=== PATIENT | male | born 1990 | race Caucasian/White ===

== ENCOUNTER 2022-09-12 15:36 | Observation (INO) | payer OTHER, MEDICAID, SELFPAY ==
[2022-09-12] VITALS (8 sets, daily range): BP systolic 135–168; BP diastolic 90–102; PULSE 79–86; RESP 16–18; TEMP 35.7–37.3; O2SAT 94–98; BMI 24.8; BMI 27.3
--- NOTE | 2022-09-12 16:15 | CRLHL7_ITS ---
For Patients: As a result of the Century Cures Act, medical imaging exams and procedure reports are released immediately into your electronic medical record. You may view this report before your referring provider. If you have questions, please contact your health care provider. INDICATION: Vomiting and diarrhea. Abdominal pain and weight loss. TECHNIQUE: CT abdomen and pelvis acquired with 90 cc Isovue 370 IV contrast. COMPARISON: 05/15/2021. FINDINGS: Lower chest: Unremarkable. Liver: Unremarkable. Normal in size and attenuation. No suspicious masses. Gallbladder and bile ducts: Unremarkable. No stones or inflammation. No biliary dilatation. Pancreas: Unremarkable. No mass or inflammation. Spleen: Unremarkable. Normal in size. No masses. Adrenal glands: Unremarkable. No nodules. Kidneys: Unremarkable. No suspicious masses, stones, or hydronephrosis. GI tract: Relatively severe diffuse fluid and gaseous distention of the colon. Less severe fluid-filled distension dural most of the small bowel as well. Appendix is not visualized. Vasculature: Abdominal aorta is normal in caliber. Mesenteric arteries are patent. Lymph nodes: No lymphadenopathy. Peritoneum/Abdominal Wall: Unremarkable. No sign of mass or infiltration. No free air or significant free fluid. Pelvis: Unremarkable. Bones: Unremarkable for age. IMPRESSION: 1. Possible toxic megacolon versus generalized ileus. 2. No other acute or significant findings. Please note that all CT scans at this facility use dose modulation, iterative reconstruction, and/or weight-based dosing when appropriate to reduce radiation dose to as low as reasonably achievable. Dictated by Arsenio Clark MD @ 09/12/2022 6:24:52 PM (Electronically Signed)
--- NOTE | 2022-09-12 16:30 | ED_ITS ---
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 I saw him in 2020 with similar symptoms at which time he was diagnosed with a sigmoid volvulus. He was transferred to [facility] at the time, and Mom reports he had surgery and had a partial colectomy. For the past couple of days, she reports that he has had lots of vomiting and diarrhea. He has seemed uncomfortable, has been diaphoretic. He did want to eat today, so had some food. He has not had a fever that she has noticed. Has not had bloody stools. His stomach has seemed ?gurgly, and at times has seemed firm. He is not able to communicate at all with her verbally. Related Data Home Medications Medication Instructions Recorded Confirmed dextroamphetamine-amphetamine 10 10 mg PO DAILY 09/12/22 09/12/22 mg tablet (Adderall) dextroamphetamine-amphetamine 15 15 mg PO DAILY 09/12/22 09/12/22 mg tablet gabapentin 100 mg capsule 100 mg PO TID 09/12/22 09/12/22 gabapentin 400 mg capsule 400 mg PO HS 09/12/22 09/12/22 quetiapine 100 mg tablet 100 mg PO HS 09/12/22 09/12/22 quetiapine 25 mg tablet 50 mg PO BID 09/12/22 09/12/22 sertraline 100 mg tablet 200 mg PO DAILY 09/12/22 09/12/22 trazodone 100 mg tablet 100 mg PO HS 09/12/22 09/12/22 Allergies Allergy/AdvReac Type Severity Reaction Status Date / Time latex Allergy Intermediate Verified 09/12/22 15:58 Sulfa (Sulfonamide Allergy Intermediate Verified 09/12/22 15:58 Antibiotics) Review of Systems Status of ROS: Reports: unobtainable due to medical condition [facility] Medical History (Updated 09/12/22 @ 18:54 by Didi Katz MD) Angelman's syndrome Anxiety Constipation History of seizure Sleep disturbance Social History Smoking Status: Never smoker Do you use any of these nicotine containing products: None Second hand tobacco smoke exposure: No How often do you have a drink containing alcohol: never How often do you have six or more drinks on one occasion: Never AUDIT-C Alcohol total score: 0 Non-prescribed substance use: denies use Exam Narrative: Exam Narrative: Vital signs as noted above. In general, an alert, somewhat diaphoretic male. Head: Atraumatic. Eyes: Pupils are equal reactive. Extraocular movements are full. Conjunctivae are normal. ENT: Mucous membranes are moist. Neck: Supple without lymphadenopathy. Heart: Regular rate and rhythm. No murmur or rub. Lungs: Clear bilaterally. No increased work of breathing, crackles or wheezes. Abdomen: Abdomen is slightly distended, firm to palpation although it is difficult to know whether he is voluntarily guarding or not. Difficult to know whether he is tender because of his underlying delay. Bowel sounds are quiet. Extremities: Well perfused. No edema. No calf tenderness. Pulses intact. Neurologic: Patient is alert and oriented to person and place. Speech is fluent. Face is symmetric. Moves all extremities equally. Affect: Consistent with developmental delay. Skin: Diaphoretic. Well perfused. Const: Vital Signs, click to edit/add: Vital Signs - 24 hr 09/12/22 15:52 09/12/22 16:36 09/12/22 18:30 Temperature 96.3 F L 98.0 F 98.0 F Pulse Rate [Pulse Oximeter] 79 Respiratory Rate 18 Blood Pressure [Ri ght Upper Arm] 148/102 H Pulse Oximetry 98 Oxygen Delivery Me thod Room Air 09/12/22 18:36 Temperature 98.0 F Pulse Rate [Pulse Oximeter] 84 Respiratory Rate 18 Blood Pressure [Ri ght Upper Arm] 135/90 H Pulse Oximetry 98 Oxygen Delivery Me thod Room Air Documenting provider has reviewed patient's vital signs: yes Course Course Hospital Course: Given his underlying nonverbal state and history, I recommended that we go straight to CT scan. An IV will be placed, I have ordered some Toradol and Zofran, IV fluids. Reevaluation(s) Reevaluation #1: Patient is improved after Zofran, no further vomiting. He seems more comfortable, less diaphoresis. He has been cooperative here as long as his mom is present he is easily soothed. He was able to get his CT scan, which by my review showed significant dilation of the colon diffusely, some air-filled loops of small bowel although these do not appear significantly dilated. Final Radiology read is as follows: IMPRESSION: 1. Possible toxic megacolon versus generalized ileus. 2. No other acute or significant findings. Labs are relatively unimpressive, his CRP is mildly elevated at 3.7, white count is normal with the minimal left shift of 73% neutrophils. His hemoglobin is 15, platelets are normal. 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 He is not toxic in appearance, not febrile, vital signs are largely normal. I did order some IV potassium, at this point I am not sure that oral potassium is a good idea for him particularly given his nonverbal status. Remainder his metabolic panel is unremarkable, LFTs are normal. Magnesium is 1.9. LFTs are notable for an AST of 52 but are otherwise normal. Lipase is 53. COVID is negative. I have discussed his case with Dr. Zimmerman who agrees with admission here for NPO, fluids and close observation with Q 12 hour abdominal films. At this time, she does not feel that the NG tube is needed, and we are in agreement that he would not likely tolerate it well. Dr. Delgado has accepted the patient for admission to the hospitalist service. Vital Signs Vital signs: Initial Vital Signs Temperature 96.3 F L 09/12/22 15:52 Temperature Source Temporal Artery Scan 09/12/22 15:52 Pulse Rate 79 09/12/22 15:52 Respiratory Rate 18 09/12/22 15:52 Blood Pressure 148/102 H 09/12/22 15:52 Blood Pressure Mean 117 09/12/22 15:52 Blood Pressure Position Supine 09/12/22 15:52 Pulse Oximetry 98 09/12/22 15:52 Oxygen Delivery Method 09/12/22 15:52 Vital Signs Temperature 96.3 F L 09/12/22 15:52 Pulse Rate 79 09/12/22 15:52 Respiratory Rate 18 09/12/22 15:52 Blood Pressure 148/102 H 09/12/22 15:52 Pulse Oximetry 98 09/12/22 15:52 Oxygen Delivery Method 09/12/22 15:52 Temperature 98.0 F 09/12/22 20:14 Pulse Rate 84 09/12/22 20:14 Respiratory Rate 18 09/12/22 20:14 Blood Pressure 135/90 H 09/12/22 20:14 Pulse Oximetry 98 09/12/22 18:36 Oxygen Delivery Method 09/12/22 18:36 Medical Decision Making Lab Data Labs: Lab Results 09/12/22 09/12/22 09/12/22 Range/Units 16:30 16:30 16:30 WBC 6.16 (4.50-11.00) K/uL RBC 4.80 (4.30-5.90) m/uL Hgb 15.0 (13.5-17.5) gm/dL Hct 43.2 (37.0-53.0) % MCV 90 (80-100) fL MCH 31 (26-34) pg MCHC 35 (32-36) gm/dL RDW Coeff of Pamela 12.5 (11.5-15.5) % Plt Count 186 (140-440) K/uL Neut % (Auto) 73.0 H (42.0-72.0) % Lymph % (Auto) 15.3 L (20-44) % Schleicher % (Auto) 10.4 (0.0-11.0) % Eos % (Auto) 0.5 (0.0-7.0) % Baso % (Auto) 0.2 (0.0-3.0) % Neut # (Auto) 4.50 (1.7-7.0) K/uL Lymph # (Auto) 0.90 (0.90-2.90) K/uL Schleicher # (Auto) 0.60 (0.00-0.90) K/UL Eos # (Auto) 0.03 (0.00-0.50) K/uL Baso # (Auto) 0.01 (0.00-0.30) K/uL Sodium 139 (135-149) mmol/L Potassium 2.9 L* (3.6-5.1) mmol/L Chloride 104 (96-114) mmol/L Carbon Dioxide 22 (20-32) mmol/L BUN 14 (5-24) mg/dL Creatinine 0.7 (0.5-1.5) mg/dL Estimated Creat Clear 164.75 Estimated GFR 125 ml/min Glucose 108 (60-115) mg/dL Lactate 0.9 (0.5-1.9) mmol/L Calcium 9.0 (8.4-10.6) mg/dL Magnesium (1.5-2.6) mg/dL Total Bilirubin 0.5 (0.1-1.5) mg/dL Direct Bilirubin 0.2 (0.0-0.5) mg/dL AST 52 H (12-35) U/L ALT 30 (4-50) U/L Alkaline Phosphatase 53 (40-150) U/L C-Reactive Protein 3.7 H (0.5-1.0) mg/dL Total Protein 7.9 (6.0-8.3) g/dL Albumin 4.6 (3.3-5.0) g/dL Lipase 53 (23-300) U/L SARS-CoV-2 (PCR) (Negative) 09/12/22 09/12/22 Range/Units 16:30 16:30 WBC (4.50-11.00) K/uL RBC (4.30-5.90) m/uL Hgb (13.5-17.5) gm/dL Hct (37.0-53.0) % MCV (80-100) fL MCH (26-34) pg MCHC (32-36) gm/dL RDW Coeff of Pamela (11.5-15.5) % Plt Count (140-440) K/uL Neut % (Auto) (42.0-72.0) % Lymph % (Auto) (20-44) % Schleicher % (Auto) (0.0-11.0) % Eos % (Auto) (0.0-7.0) % Baso % (Auto) (0.0-3.0) % Neut # (Auto) (1.7-7.0) K/uL Lymph # (Auto) (0.90-2.90) K/uL Schleicher # (Auto) (0.00-0.90) K/UL Eos # (Auto) (0.00-0.50) K/uL Baso # (Auto) (0.00-0.30) K/uL Sodium (135-149) mmol/L Potassium (3.6-5.1) mmol/L Chloride (96-114) mmol/L Carbon Dioxide (20-32) mmol/L BUN (5-24) mg/dL Creatinine (0.5-1.5) mg/dL Estimated Creat Clear Estimated GFR ml/min Glucose (60-115) mg/dL Lactate (0.5-1.9) mmol/L Calcium (8.4-10.6) mg/dL Magnesium 1.9 (1.5-2.6) mg/dL Total Bilirubin (0.1-1.5) mg/dL Direct Bilirubin (0.0-0.5) mg/dL AST (12-35) U/L ALT (4-50) U/L Alkaline Phosphatase (40-150) U/L C-Reactive Protein (0.5-1.0) mg/dL Total Protein (6.0-8.3) g/dL Albumin (3.3-5.0) g/dL Lipase (23-300) U/L SARS-CoV-2 (PCR) Negative SARS-CoV-2 (Negative) Discharge Plan Discharge Clinical Impression: [place] syndrome, Angelman syndrome, Hypokalemia Patient Disposition: Admitted As Inpatient Condition: Improved
[2022-09-12] MEDS: ONDANSETRON 2 MG/ML inj 4 MG IVP (16:35)
[2022-09-12] MEDS: KETOROLAC 15 MG/ML inj IVP (16:36)
[2022-09-12 16:37] LABS: Lactate* 0.9 mmol/L (0.5-1.9)
[2022-09-12] MEDS: 0.9 % SODIUM CHLORIDE 1000 ml 1,000 ML IV (16:39)
[2022-09-12 16:44] LABS: Basophils Absolute Auto 0.01 K/uL (0.00-0.30); Basophils Percent Auto 0.2 % (0.0-3.0); Eosinophils Absolute Auto 0.03 K/uL (0.00-0.50); Eosinophils Percent Auto 0.5 % (0.0-7.0); Hematocrit 43.2 % (37.0-53.0); Immature Granulocytes Abs Auto 0.04 K/uL (0.00-0.30); Immature Granulocytes Pct Auto 0.6 %; Lymphocytes Percent Auto 15.3 % (20-44); Mean Corpuscular HGB Conc 35 gm/dL (32-36); Mean Corpuscular Hemoglobin 31 pg (26-34); Mean Corpuscular Volume 90 fL (80-100); Monocytes Percent Auto 10.4 % (0.0-11.0); Platelet Count* 186 K/uL (140-440); RDW Coefficient of Variation % 12.5 % (11.5-15.5); White Blood Count* 6.16 K/uL (4.50-11.00)
[2022-09-12 16:58] LABS: Albumin* 4.6 g/dL (3.3-5.0); Chloride* 104 mmol/L (96-114)
[2022-09-12 16:59] LABS: Sodium* 139 mmol/L (135-149)
[2022-09-12 17:00] LABS: Creatinine* 0.7 mg/dL (0.5-1.5); Est. Creatinine Clearance* 164.75; Estimated Glomerular Filt Rate 125 ml/min
[2022-09-12 17:01] LABS: Alanine Aminotransferase* 30 U/L (4-50); Alkaline Phosphatase* 53 U/L (40-150); Bilirubin Direct* 0.2 mg/dL (0.0-0.5); Bilirubin Total* 0.5 mg/dL (0.1-1.5); Blood Urea Nitrogen* 14 mg/dL (5-24); Carbon Dioxide* 22 mmol/L (20-32); Glucose* 108 mg/dL (60-115); Lipase* 53 U/L (23-300); Total Protein* 7.9 g/dL (6.0-8.3)
[2022-09-12 17:02] LABS: Aspartate Amino Transferase* 52 U/L (12-35)
[2022-09-12 17:03] LABS: Slide Review Reflex No
[2022-09-12 17:04] LABS: C Reactive Protein* 3.7 mg/dL (0.5-1.0); Potassium* 2.9 mmol/L (3.6-5.1)
[2022-09-12 17:45] LABS: SARS PCR* Negative SARS-CoV-2 (Negative)
[2022-09-12 18:00] LABS: Magnesium* 1.9 mg/dL (1.5-2.6)
[2022-09-12] MEDS: POTASSIUM CHLORIDE 10 MEQ/100 ML PIGGYBACK 100 MEQ IVPB (19:25)
--- NOTE | 2022-09-12 21:07 | P.IMHP_ITS ---
Hospitalist- H&P: HPI History of Present Illness Time Seen by Provider: 18:55 Date Seen: 09/12/22 Chief complaint: Vomiting, diarrhea, sweating Narrative: Adithya Muñoz is a 32 year old nonverbal male with Angelman's syndrome who was brought to the ER for vomiting and diarrhea. His mother gives me history. Over the last few weeks to months, he has been having softer stool, often liquid in the morning. His parents have been working with Dr. Davidson to adjust miralax dosing to help with constipation, but the liquid stools sometimes are a challenge. 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 When he returned home that night, his mother noted that he seemed different and he did not want supper. Overnight he had a large amount of diarrhea and vomited once. His mother has not given him any MiraLax since Monday morning. On Monday he had frequent emesis and diarrhea. Yesterday he had no appetite and continued to have dry heaves. He was also lying around a lot and did not seem to have much energy. He wanted his mom by his side most of the day as well. This morning he woke up and wanted to eat. His mother let him try some applesauce and cream of wheat for breakfast which went okay so she gave him soup for lunch along with some Gatorade and ananth gold. All day long today he has been clammy and sweaty which is unusual for him. He has not had any recent illnesses and has not had any recent fevers or chills, coughs or colds. About 2 years ago he had a volvulus which he had 2 ft of colon removed. The surgeon who did his surgery told his mother that appeared that he has slow movement through his bowels. Adithya has had chronic constipation all his life. His mother notes that he does not like to go to the bathroom, especially when he is not at home, but even at home it is difficult to get him to sit on the toilet. He does go in the morning, but holds any stool or urine until he gets home at night and then he ends up having to go several times even sometimes in the middle of the night. 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 Smoking Status: Never smoker Do you use any of these nicotine containing products: None Second hand tobacco smoke exposure: No How often do you have a drink containing alcohol: never How often do you have six or more drinks on one occasion: Never AUDIT-C Alcohol total score: 0 Non-prescribed substance use: denies use Caffeine: No Meds Home Medications and Allergies Home Medications Medication Instructions Recorded Confirmed Type dextroamphetamine-amphetamine 10 10 mg PO DAILY 09/12/22 09/12/22 History mg tablet (Adderall) dextroamphetamine-amphetamine 15 15 mg PO DAILY 09/12/22 09/12/22 History mg tablet gabapentin 100 mg capsule 100 mg PO TID 09/12/22 09/12/22 History gabapentin 400 mg capsule 400 mg PO HS 09/12/22 09/12/22 History polyethylene glycol 3350 17 17 g PO DAILY 09/12/22 09/12/22 History gram/dose oral powder (Miralax) quetiapine 100 mg tablet 100 mg PO HS 09/12/22 09/12/22 History quetiapine 25 mg tablet 50 mg PO BID 09/12/22 09/12/22 History sertraline 100 mg tablet 200 mg PO DAILY 09/12/22 09/12/22 History trazodone 100 mg tablet 100 mg PO HS 09/12/22 09/12/22 History Allergies Allergy/AdvReac Type Severity Reaction Status Date / Time latex Allergy Intermediate Verified 09/12/22 15:58 Sulfa (Sulfonamide Allergy Intermediate Verified 09/12/22 15:58 Antibiotics) Exam Narrative: Exam Narrative: General: No acute distress. Sitting up in bed, nonverbal, does occasionally make non-word sounds. Awake, alert. He points the TV and to his mother he grabs his mother's hands and wants her to scratch his back or his head. He has a toy tractor which helps provide some sensory stimulus as well. He also grabbed my arms and brought them to his head for head scratches. Exam was difficult because he does not follow commands and occasionally resists certain portions of the exam. HEENT: Normocephalic atraumatic, pupils equally round. He refused to open his mouth for examination. Cardiovascular: Regular rate and rhythm. No murmurs, gallops, or rubs. Chest: No increased work of breathing. Clear to auscultation bilaterally. No crackles or wheezes. Abdomen: Bowel sounds present. Distended. Rigid, although he was constantly in his head up and trying to set up and may be consciously guarding during the examination. He did not appear to be in pain or have tenderness with palpation. He is wearing a depends. Due to his inability to cooperate with the examinati on, I was unable to do a rectal exam. Extremities: No edema, no cyanosis or clubbing. Skin: No jaundice, no pallor, no rashes. Const: Vital Signs, click to edit/add: Vital Signs - 24 hr 09/12/22 15:52 09/12/22 16:36 09/12/22 18:30 Temperature 96.3 F L 98.0 F 98.0 F Pulse Rate [Pulse Oximeter] 79 Respiratory Rate 18 Blood Pressure [Ri ght Upper Arm] 148/102 H Pulse Oximetry 98 Oxygen Delivery Me thod Room Air 09/12/22 18:36 09/12/22 20:14 Temperature 98.0 F 98.0 F Pulse Rate [Pulse Oximeter] 84 84 Respiratory Rate 18 18 Blood Pressure [Ri ght Upper Arm] 135/90 H 135/90 H Pulse Oximetry 98 Oxygen Delivery Me thod Room Air Hospitalist - H&P: Result Labs Labs: Short CBC 09/12/22 Range/Units 16:30 WBC 6.16 (4.50-11.00) K/uL Hgb 15.0 (13.5-17.5) gm/dL Hct 43.2 (37.0-53.0) % Plt Count 186 (140-440) K/uL BMP 09/12/22 16:30 Sodium 139 Potassium 2.9 L* Chloride 104 Carbon Dioxide 22 BUN 14 Creatinine 0.7 Glucose 108 Calcium 9.0 Liver Function 09/12/22 Range/Units 16:30 Total Bilirubin 0.5 (0.1-1.5) mg/dL Direct Bilirubin 0.2 (0.0-0.5) mg/dL AST 52 H (12-35) U/L ALT 30 (4-50) U/L Alkaline Phosphatase 53 (40-150) U/L Albumin 4.6 (3.3-5.0) g/dL Ordering Physician: Didi Katz M.D. Date of Service: 09/12/22 Procedure(s): CT abdomen pelvis w con Accession Number(s): [id number] cc: Didi Katz M.D.; Krystal Davidson M.D.~ For Patients: As a result of the Cures Act, medical imaging exams and procedure reports are released immediately into your electronic medical record. You may view this report before your referring provider. If you have questions, please contact your health care provider. INDICATION: Vomiting and diarrhea. Abdominal pain and weight loss. TECHNIQUE: CT abdomen and pelvis acquired with 90 cc Isovue 370 IV contrast. COMPARISON: 05/15/2021. FINDINGS: Lower chest: Unremarkable. Liver: Unremarkable. Normal in size and attenuation. No suspicious masses. Gallbladder and bile ducts: Unremarkable. No stones or inflammation. No biliary dilatation. Pancreas: Unremarkable. No mass or inflammation. Spleen: Unremarkable. Normal in size. No masses. Adrenal glands: Unremarkable. No nodules. Kidneys: Unremarkable. No suspicious masses, stones, or hydronephrosis. GI tract: Relatively severe diffuse fluid and gaseous distention of the colon. Less severe fluid-filled distension dural most of the small bowel as well. Appendix is not visualized. Vasculature: Abdominal aorta is normal in caliber. Mesenteric arteries are patent. Lymph nodes: No lymphadenopathy. Peritoneum/Abdominal Wall: Unremarkable. No sign of mass or infiltration. No free air or significant free fluid. Pelvis: Unremarkable. Bones: Unremarkable for age. IMPRESSION: 1. Possible toxic megacolon versus generalized ileus. 2. No other acute or significant findings. Please note that all CT scans at this facility use dose modulation, iterative reconstruction, and/or weight-based dosing when appropriate to reduce radiation dose to as low as reasonably achievable. Dictated by Arsenio Clark MD @ 09/12/2022 6:24:52 PM (Electronically Signed) Assessment and Plan Assessment and plan (1) Lauren syndrome: Problem comment: Appears to be isolated finding without inciting cause such as recent surgery or infection. Associated with possible peritonitis, secretory diarrhea and hypokalemia, less likely to respond to decompression or neostigmine. Obtain abd XR now since exam is difficult and abdomen is tense. Treat with NPO, IVF, serial abd XR. General surgery (Erasmo) aware of patient and will see in am. Stool cultures. Check for C diff. Hold laxatives, miralax. Status: Acute (2) Slow transit constipation: Status: Chronic (3) Hypokalemia: Problem comment: Probably due to fecal loss from secretory diarrhea - Got 10mEq KCl IV in ER. Magnesium wnl. Recheck potassium and replace further if needed, which is likely. Will continue giving IV due to recent vomiting and NPO status. Status: Acute (4) Angelman syndrome: Status: Chronic (5) Elevated AST (SGOT): Problem comment: Cause unclear. He is on both seroquel and sertraline which may be causing elevation. Also possibly bowel in origin. Recheck in am. May need further investigation with hepatic US. Status: Acute Plan Today I spent 80 minutes admitting the patient. 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
--- NOTE | 2022-09-12 22:34 | CRLHL7_ITS ---
For Patients: As a result of the Century Cures Act, medical imaging exams and procedure reports are released immediately into your electronic medical record. You may view this report before your referring provider. If you have questions, please contact your health care provider. INDICATION: [place]. Followup. 32-year-old male. TECHNIQUE: Upright and supine views of the abdomen. Total of 3 images. COMPARISON : CT study earlier on 09/12/2022. Prior abdominal radiographs dated 05/15/2021. FINDINGS / IMPRESSION : As noted on the earlier CT, there is significant air distention of large bowel, extending from the cecum to the rectum. On upright imaging, no free air or portal venous gas. No abnormal bowel wall thickening. No pathologic calcifications. Metallic density in the right pelvis, unchanged. Small amount of contrast opacifies the bladder. Dictated by Dwayne Britton MD @ 09/13/2022 12:04:25 AM Dictated by: Dwayne Britton MD @ 09/13/2022 00:04:33 (Electronically Signed)
[2022-09-12] MEDS: LACTATED RINGERS 1000 ML 1,000 ML 125 ML IV (22:58)
--- NOTE | 2022-09-12 23:51 | PC.NURSE ---
Up from ED with bowel obstruction. Mother, Faby, at bedside and will stay with patient for duration of stay. Mom will receive caregiver baljit. Mom states Adithya will get clammy, sweating, and touch his stomach when he is in pain. He is not currently exhibiting these symptoms. Has toy tractor that is a comfort item for him. He enjoys having staff rub his scalp. Up to bathroom times 1, mom states he will not allow staff to assist and will do better if she helps. Does have issues using bathrooms that are not his own. Goes to adult daycare and has a CPA at home. Mother and father are very loving and supportive. VSS, rechecked at end of shift and surgeon/hospitalist notified. Stool cultures/Cdiff pending, but patient has not had any stool. No vomiting at this time.
[2022-09-13] VITALS (7 sets, daily range): BP systolic 120; BP diastolic 70; PULSE 60–92; RESP 16–18; TEMP 36.6–37.1; O2SAT 95–97
[2022-09-13] LABS: Potassium* 2.9 mmol/L (3.6-5.1)
[2022-09-13] MEDS: POTASSIUM CHLORIDE 10 MEQ/100 ML PIGGYBACK 100 MEQ IVPB ×5 (00:43→12:25)
[2022-09-13] MEDS: TRAZODONE HCL 50 MG TABLET 100 MG PO ×2 (00:45→20:33)
[2022-09-13] MEDS: QUETIAPINE 100 MG TABLET PO ×2 (00:45→20:33)
[2022-09-13] MEDS: GABAPENTIN 100 MG CAPSULE 500 MG PO ×2 (00:46→20:34)
--- NOTE | 2022-09-13 05:50 | PC.NURSE ---
Pt pleasant and fairly cooperative. He is MR and nonverbal. He loves to grab your hand and have you rub the top of his head. unable to get BP's overnight. He has remained afebrile and O2 sats in the mid 90's. He has not voided this shift. When talking to mom who is his caregiver. He typically only goes twice in 24hrs. And she stated he has done that today. He has been up all night watching TV. He moves fairly well independantly with SB assist of mom. He has been NPO.
[2022-09-13 06:44] LABS: Basophils Absolute Auto 0.03 K/uL (0.00-0.30); Basophils Percent Auto 0.5 % (0.0-3.0); Eosinophils Absolute Auto 0.04 K/uL (0.00-0.50); Eosinophils Percent Auto 0.6 % (0.0-7.0); Hematocrit 34.8 % (37.0-53.0); Hemoglobin* 12.3 gm/dL (13.5-17.5); Lymphocytes Percent Auto 18.5 % (20-44); Mean Corpuscular HGB Conc 35 gm/dL (32-36); Mean Corpuscular Hemoglobin 32 pg (26-34); Mean Corpuscular Volume 90 fL (80-100); Monocytes Percent Auto 13.4 % (0.0-11.0); Neutrophils Absolute Auto 4.16 K/uL (1.7-7.0); Platelet Count* 154 K/uL (140-440); RDW Coefficient of Variation % 12.5 % (11.5-15.5); Red Blood Count 3.89 m/uL (4.30-5.90); White Blood Count* 6.21 K/uL (4.50-11.00)
[2022-09-13 06:48] LABS: Slide Review Reflex No
[2022-09-13 06:58] LABS: Albumin* 3.6 g/dL (3.3-5.0); Chloride* 104 mmol/L (96-114); Potassium* 3.1 mmol/L (3.6-5.1); Sodium* 138 mmol/L (135-149)
[2022-09-13 07:00] LABS: Bilirubin Total* 0.5 mg/dL (0.1-1.5); Creatinine* 0.6 mg/dL (0.5-1.5); Estimated Glomerular Filt Rate 131 ml/min
[2022-09-13 07:01] LABS: Alanine Aminotransferase* 24 U/L (4-50); Alkaline Phosphatase* 48 U/L (40-150); Aspartate Amino Transferase* 31 U/L (12-35); Blood Urea Nitrogen* 11 mg/dL (5-24); Calcium* 8.2 mg/dL (8.4-10.6); Carbon Dioxide* 28 mmol/L (20-32); Glucose* 92 mg/dL (60-115); Total Protein* 6.2 g/dL (6.0-8.3)
[2022-09-13 07:04] LABS: C Reactive Protein* 3.8 mg/dL (0.5-1.0)
[2022-09-13] MEDS: QUETIAPINE 25 MG TABLET 50 MG PO ×2 (07:53→16:16)
[2022-09-13] MEDS: GABAPENTIN 100 MG CAPSULE 200 MG PO ×2 (07:53→16:16)
[2022-09-13] MEDS: SERTRALINE 100 MG TABLET 200 MG PO (07:53)
[2022-09-13] MEDS: LACTATED RINGERS 1000 ML 1,000 ML 125 ML IV ×3 (09:23→23:59)
[2022-09-13] MEDS: SODIUM CHLORIDE 0.9 % (FLUSH) 10 ML SYRINGE 5 ML IVF (09:26)
--- NOTE | 2022-09-13 09:30 | PM.GSCN ---
History of Present Illness Consult details Date Seen: 09/13/22 Consult date: 09/13/22 Narrative: Patient presented to the emergency department yesterday evening for vomiting, diarrhea and abdominal pain. Patient does have MR and is nonverbal, so is accompanied by his mother. She states that on Monday he started to have a copious amount of vomiting and liquid diarrhea. This continued until Monday. Since Monday he has not had a bowel movement, although he continues to pass gas. No further episodes of vomiting. He has had a poor appetite at home. No fevers or chills, but his mom did note profuse sweating. He does have a history of chronic constipation and takes MiraLax on a daily basis. In 2020 he presented to the emergency department with evidence of sigmoid volvulus. He subsequently underwent a sigmoid resection with primary anastomosis. Review of Systems Status of ROS: Reports: unobtainable due to mental status [facility] Medical History (Updated 09/12/22 @ 22:55 by Karen Delgado MD) Angelman's syndrome Anxiety Constipation History of seizure Sleep disturbance Slow transit constipation Surgical History (Updated 09/12/22 @ 21:24 by Karen Delgado MD) H/O umbilical hernia repair History of colon resection (~04/2021) S/P tonsillectomy and adenoidectomy [place] teeth extracted Family History (Updated 09/12/22 @ 22:57 by Karen Delgado MD) Maternal Grandmother Breast cancer Lung cancer Maternal Grandfather Diabetes Heart disease Paternal Grandfather Diabetes Heart disease Neuropathy Social History (Updated 09/12/22 @ 21:58 by Karen Delgado MD) Narrative: Lives at home with his parents and 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 Smoking Status: Never smoker Do you use any of these nicotine containing products: None Second hand tobacco smoke exposure: No How often do you have a drink containing alcohol: never How often do you have six or more drinks on one occasion: Never AUDIT-C Alcohol total score: 0 Non-prescribed substance use: denies use Caffeine: No Meds Home Medications and Allergies Home Medications Medication Instructions Recorded Confirmed Type dextroamphetamine-amphetamine 10 10 mg PO DAILY 09/12/22 09/12/22 History mg tablet (Adderall) dextroamphetamine-amphetamine 15 15 mg PO DAILY 09/12/22 09/12/22 History mg tablet gabapentin 100 mg capsule 100 - 200 mg PO TID 09/12/22 09/13/22 History gabapentin 400 mg capsule 400 mg PO HS 09/12/22 09/12/22 History polyethylene glycol 3350 17 17 g PO DAILY PRN 09/12/22 09/13/22 History gram/dose oral powder (Miralax) quetiapine 100 mg tablet 100 mg PO HS 09/12/22 09/12/22 History quetiapine 25 mg tablet 50 mg PO BID@08,15 09/12/22 09/13/22 History sertraline 100 mg tablet 200 mg PO DAILY 09/12/22 09/12/22 History trazodone 100 mg tablet 100 mg PO HS 09/12/22 09/12/22 History Allergies Allergy/AdvReac Type Severity Reaction Status Date / Time latex Allergy Intermediate Verified 09/12/22 15:58 Sulfa (Sulfonamide Allergy Intermediate Verified 09/12/22 15:58 Antibiotics) Exam Narrative: Exam Narrative: General: Alert, nontoxic in no acute distress Respiratory: Equal breath rise bilaterally, maintained on room air CV: Regular rhythm rate, well perfused Abdomen: Mild distention, soft and nontender to palpation. Positive bowel sounds. Const: Vital Signs, click to edit/add: Vital Signs - 24 hr 09/12/22 15:52 09/12/22 16:36 09/12/22 18:30 Temperature 96.3 F L 98.0 F 98.0 F Pulse Rate [Left B rachial] Pulse Rate [Pulse Oximeter] 79 Respiratory Rate 18 Blood Pressure [Le ft Arm] Blood Pressure [Ri ght Upper Arm] 148/102 H Pulse Oximetry 98 Oxygen Delivery Me thod Room Air 09/12/22 18:36 09/12/22 20:14 09/12/22 20:30 Temperature 98.0 F 98.0 F 98.3 F Pulse Rate [Left B rachial] 83 Pulse Rate [Pulse Oximeter] 84 84 Respiratory Rate 18 18 18 Blood Pressure [Le ft Arm] 168/100 H Blood Pressure [Ri ght Upper Arm] 135/90 H 135/90 H Pulse Oximetry 98 94 Oxygen Delivery Me thod Room Air Room Air 09/12/22 22:29 09/12/22 22:40 09/13/22 02:44 Temperature 99.2 F 98.7 F Pulse Rate [Left B rachial] 86 92 Pulse Rate [Pulse Oximeter] Respiratory Rate 16 18 18 Blood Pressure [Le ft Arm] 152/98 H Blood Pressure [Ri ght Upper Arm] Pulse Oximetry 94 97 96 Oxygen Delivery Me thod Room Air Room Air Room Air 09/13/22 03:00 Temperature 98.8 F Pulse Rate [Left B rachial] 84 Pulse Rate [Pulse Oximeter] Respiratory Rate 18 Blood Pressure [Le ft Arm] Blood Pressure [Ri ght Upper Arm] Pulse Oximetry 95 Oxygen Delivery Me thod Room Air Results Labs Labs: Abnormal lab results 09/12/22 09/12/22 09/12/22 Range/Units 16:30 16:30 23:04 RBC (4.30-5.90) m/uL Hgb (13.5-17.5) gm/dL Hct (37.0-53.0) % Neut % (Auto) 73.0 H (42.0-72.0) % Lymph % (Auto) 15.3 L (20-44) % [place] % (Auto) (0.0-11.0) % Potassium 2.9 L* 2.9 L* (3.6-5.1) mmol/L Calcium (8.4-10.6) mg/dL AST 52 H (12-35) U/L C-Reactive Protein 3.7 H (0.5-1.0) mg/dL 09/13/22 09/13/22 Range/Units 06:04 06:04 RBC 3.89 L (4.30-5.90) m/uL Hgb 12.3 L (13.5-17.5) gm/dL Hct 34.8 L (37.0-53.0) % Neut % (Auto) (42.0-72.0) % Lymph % (Auto) 18.5 L (20-44) % [place] % (Auto) 13.4 H (0.0-11.0) % Potassium 3.1 L (3.6-5.1) mmol/L Calcium 8.2 L (8.4-10.6) mg/dL AST (12-35) U/L C-Reactive Protein 3.8 H (0.5-1.0) mg/dL Diabetes panel 09/12/22 09/12/22 09/13/22 Range/Units 16:30 23:04 06:04 Sodium 139 138 (135-149) mmol/L Potassium 2.9 L* 2.9 L* 3.1 L (3.6-5.1) mmol/L Chloride 104 104 (96-114) mmol/L Carbon Dioxide 22 28 (20-32) mmol/L BUN 14 11 (5-24) mg/dL Creatinine 0.7 0.6 (0.5-1.5) mg/dL Glucose 108 92 (60-115) mg/dL Calcium 9.0 8.2 L (8.4-10.6) mg/dL AST 52 H 31 (12-35) U/L ALT 30 24 (4-50) U/L Alkaline Phosphatase 53 48 (40-150) U/L Total Protein 7.9 6.2 (6.0-8.3) g/dL Albumin 4.6 3.6 (3.3-5.0) g/dL Calcium panel 09/12/22 09/13/22 Range/Units 16:30 06:04 Calcium 9.0 8.2 L (8.4-10.6) mg/dL Albumin 4.6 3.6 (3.3-5.0) g/dL Pituitary panel 09/12/22 09/12/22 09/13/22 Range/Units 16:30 23:04 06:04 Sodium 139 138 (135-149) mmol/L Potassium 2.9 L* 2.9 L* 3.1 L (3.6-5.1) mmol/L Chloride 104 104 (96-114) mmol/L Carbon Dioxide 22 28 (20-32) mmol/L BUN 14 11 (5-24) mg/dL Creatinine 0.7 0.6 (0.5-1.5) mg/dL Glucose 108 92 (60-115) mg/dL Calcium 9.0 8.2 L (8.4-10.6) mg/dL Adrenal panel 09/12/22 09/12/22 09/13/22 Range/Units 16:30 23:04 06:04 Sodium 139 138 (135-149) mmol/L Potassium 2.9 L* 2.9 L* 3.1 L (3.6-5.1) mmol/L Chloride 104 104 (96-114) mmol/L Carbon Dioxide 22 28 (20-32) mmol/L BUN 14 11 (5-24) mg/dL Creatinine 0.7 0.6 (0.5-1.5) mg/dL Glucose 108 92 (60-115) mg/dL Calcium 9.0 8.2 L (8.4-10.6) mg/dL Total Bilirubin 0.5 0.5 (0.1-1.5) mg/dL AST 52 H 31 (12-35) U/L ALT 30 24 (4-50) U/L Alkaline Phosphatase 53 48 (40-150) U/L Total Protein 7.9 6.2 (6.0-8.3) g/dL Albumin 4.6 3.6 (3.3-5.0) g/dL All other labs normal. Imaging Abdominal x-ray: report reviewed and image reviewed Abdomen CT scan report/results: report reviewed and image reviewed Assessment and Plan Assessment and plan (1) Lauren syndrome: Problem comment: Appears to be isolated finding without inciting cause such as recent surgery or infection. Associated with possible peritonitis, secretory diarrhea and hypokalemia, less likely to respond to decompression or neostigmine. Obtain abd XR now since exam is difficult and abdomen is tense. Treat with NPO, IVF, serial abd XR. General surgery (Erasmo) aware of patient and will see in am. Stool cultures. Check for C diff. Hold laxatives, miralax. 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 Vital signs stable overnight with no further bowel movements since admission, exam this morning is benign with no tenderness noted and positive bowel sounds. Labs reviewed, CBC with normal WBC and CRP just mildly elevated at 3.8. Abdominal x-ray yesterday evening and CT scan reviewed, both of which demonstrated distended colon and copious amount of stool. Measurements at this time are less than 10 cm in size. No colonic mass was seen, no evidence of free air, intra-abdominal fluid or concern for perforation/ischemia at this time. Recommend medical management at this time. Stool cultures have been ordered and are pending, to rule out an infectious source. -NPO, IV fluids -replace electrolyte losses -try to avoid narcotic pain medicine for pain control as much as possible -encourage ambulation -okay for suppository this morning, could also try tap water enema as tolerated by patient -Q 12 hour abdominal x-ray -trend abdominal exam Will continue to follow. Please call with any acute clinical changes, questions or concerns.
--- NOTE | 2022-09-13 10:10 | PM.IMPN1 ---
Progress Note: A&P Assessment and plan (1) Lauren syndrome: Problem details: Secretory diarrhea and hypokalemia, less likely to respond to decompression or neostigmine. Appears to be isolated finding without inciting cause such as recent surgery or infection. Abdominal exam benign today, improved. I discussed with Dr. Zimmerman. Continue with conservative management: NPO, IVF, serial abd XR. Continue to try to obtain Stool cultures and C diff. trial of bisacodyl suppository today. Status: Acute (2) Slow transit constipation: Status: Chronic (3) Angelman syndrome: Status: Chronic (4) Hypokalemia: Problem details: Probably due to fecal loss from secretory diarrhea Improving. Continue replacement with IV potassium, 2 bumps this morning. Recheck in a.m.. Status: Acute (5) Elevated AST (SGOT): Problem details: Resolved Status: Resolved Subjective Time Seen by Provider: 09:45 Date Seen: 09/13/22 Interval history: Adithya and his mother are in the room this morning. Faby was eating breakfast and Adithya repeatedly reached for her food. She was very good at redirecting him. He was quite busy last night and did not get much sleep. He also pulled out his IV and had a new one started this morning. He has had flatus overnight, but no BM since Monday. He has only urinated a few times, but very large amounts (one time was 1000 cc). Exam Narrative: Exam Narrative: General: No acute distress. Awake, alert, nonverbal. No pallor. No jaundice. Oropharynx: Clear. Mucous membranes moist. Cardiovascular: Regular rate and rhythm. No murmurs, gallops, or rubs. Respiratory: Clear to auscultation bilaterally. No wheezes or crackles. Abdomen: Bowel sounds present. Less distended today, soft, nontender. Const: Vital Signs, click to edit/add: Vital Signs - 24 hr 09/12/22 15:52 09/12/22 16:36 09/12/22 18:30 Temperature 96.3 F L 98.0 F 98.0 F Pulse Rate [Left B rachial] Pulse Rate [Pulse Oximeter] 79 Respiratory Rate 18 Blood Pressure [Le ft Arm] Blood Pressure [Ri ght Upper Arm] 148/102 H Pulse Oximetry 98 Oxygen Delivery Me thod Room Air 09/12/22 18:36 09/12/22 20:14 09/12/22 20:30 Temperature 98.0 F 98.0 F 98.3 F Pulse Rate [Left B rachial] 83 Pulse Rate [Pulse Oximeter] 84 84 Respiratory Rate 18 18 18 Blood Pressure [Le ft Arm] 168/100 H Blood Pressure [Ri ght Upper Arm] 135/90 H 135/90 H Pulse Oximetry 98 94 Oxygen Delivery Ks thod Room Air Room Air 09/12/22 22:29 09/12/22 22:40 09/13/22 02:44 Temperature 99.2 F 98.7 F Pulse Rate [Left B rachial] 86 92 Pulse Rate [Pulse Oximeter] Respiratory Rate 16 18 18 Blood Pressure [Le ft Arm] 152/98 H Blood Pressure [Ri ght Upper Arm] Pulse Oximetry 94 97 96 Oxygen Delivery Ks thod Room Air Room Air Room Air 09/13/22 03:00 Temperature 98.8 F Pulse Rate [Left B rachial] 84 Pulse Rate [Pulse Oximeter] Respiratory Rate 18 Blood Pressure [Le ft Arm] Blood Pressure [Ri ght Upper Arm] Pulse Oximetry 95 Oxygen Delivery Ks thod Room Air Labs Labs: Laboratory Results - last 24 hr 09/12/22 09/12/22 09/12/22 16:30 16:30 16:30 WBC 6.16 RBC 4.80 Hgb 15.0 Hct 43.2 MCV 90 MCH 31 MCHC 35 RDW Coeff of Pamela 12.5 Plt Count 186 Neut % (Auto) 73.0 H Lymph % (Auto) 15.3 L [place] % (Auto) 10.4 Eos % (Auto) 0.5 Baso % (Auto) 0.2 Neut # (Auto) 4.50 Lymph # (Auto) 0.90 [place] # (Auto) 0.60 Eos # (Auto) 0.03 Baso # (Auto) 0.01 Sodium 139 Potassium 2.9 L* Chloride 104 Carbon Dioxide 22 BUN 14 Creatinine 0.7 Estimated Creat Clear 164.75 Estimated GFR 125 Glucose 108 Lactate 0.9 Calcium 9.0 Magnesium Total Bilirubin 0.5 Direct Bilirubin 0.2 AST 52 H ALT 30 Alkaline Phosphatase 53 C-Reactive Protein 3.7 H Total Protein 7.9 Albumin 4.6 Lipase 53 SARS-CoV-2 (PCR) 09/12/22 09/12/22 09/12/22 16:30 16:30 23:04 WBC RBC Hgb Hct MCV MCH MCHC RDW Coeff of Pamela Plt Count Neut % (Auto) Lymph % (Auto) [place] % (Auto) Eos % (Auto) Baso % (Auto) Neut # (Auto) Lymph # (Auto) [place] # (Auto) Eos # (Auto) Baso # (Auto) Sodium Potassium 2.9 L* Chloride Carbon Dioxide BUN Creatinine Estimated Creat Clear Estimated GFR Glucose Lactate Calcium Magnesium 1.9 Total Bilirubin Direct Bilirubin AST ALT Alkaline Phosphatase C-Reactive Protein Total Protein Albumin Lipase SARS-CoV-2 (PCR) Negative SARS-CoV-2 09/13/22 09/13/22 06:04 06:04 WBC 6.21 RBC 3.89 L Hgb 12.3 L Hct 34.8 L MCV 90 MCH 32 MCHC 35 RDW Coeff of Pamela 12.5 Plt Count 154 Neut % (Auto) 67.0 Lymph % (Auto) 18.5 L [place] % (Auto) 13.4 H Eos % (Auto) 0.6 Baso % (Auto) 0.5 Neut # (Auto) 4.16 Lymph # (Auto) 1.10 [place] # (Auto) 0.80 Eos # (Auto) 0.04 Baso # (Auto) 0.03 Sodium 138 Potassium 3.1 L Chloride 104 Carbon Dioxide 28 BUN 11 Creatinine 0.6 Estimated Creat Clear 192.20 Estimated GFR 131 Glucose 92 Lactate Calcium 8.2 L Magnesium Total Bilirubin 0.5 Direct Bilirubin AST 31 ALT 24 Alkaline Phosphatase 48 C-Reactive Protein 3.8 H Total Protein 6.2 Albumin 3.6 Lipase SARS-CoV-2 (PCR)
[2022-09-13] MEDS: bisacodyL 10 MG SUPP.RECT PR (10:45)
--- NOTE | 2022-09-13 11:30 | CRLHL7_ITS ---
For Patients: As a result of the Cures Act, medical imaging exams and procedure reports are released immediately into your electronic medical record. You may view this report before your referring provider. If you have questions, please contact your health care provider. Indication: [place] Technique: Abdomen 1 view. Comparison: 09/12/2022 Findings: Persistent gaseous distention of the colon noted which measures up to 6.9 cm, similar to the most recent exam. No free air. Impression: Similar gaseous colonic distention. Dictated by Nic Welsh MD @ 09/13/2022 12:45:24 PM (Electronically Signed)
--- NOTE | 2022-09-13 18:11 | PC.NURSE ---
Pt non-verbal, grabs junior technical writer's hand to rub his head during interactions, pt pleasant, repetitive noises, pt's mom is at bedside and redirects PRN, she is very helpful in soothing pt and assisting with cares. Pt con't on LR 125ml/hr, pt received two 10mEq doses of K+ this shift, recheck K+ tomorrow AM. Pt received suppository, had stool result this evening, reportedly soft/loose consistency. Pt passing large amount of flatus per pt's mom. Pt amb w/ SBA from his mom to bathroom, pt does well with his mom, okay with staff in room but staff not able to help with much personal cares, pt's mom states pt may become upset. IV replaced this AM, small arm brace in place to prevent pt from accidentally removing. Voided large amnt in AM, in toilet. Vitals WDL when obtained, pt only tolerated 1 BP check this shift, other vitals WDL. Remains NPO, sips and chips ok per order, pt tolerating. Pt taking meds whole with water, no issues noted. Repeat abd XR in AM. Call light within reach, pt's mom remains at bedside.
[2022-09-13 18:48] LABS: C.Difficile Negative (Negative); CDIFFEPI 027 PRESUMPTIVE NEGATIVE (Negative)
--- NOTE | 2022-09-13 23:30 | CRLHL7_ITS ---
For Patients: As a result of the Cures Act, medical imaging exams and procedure reports are released immediately into your electronic medical record. You may view this report before your referring provider. If you have questions, please contact your health care provider. INDICATION: Lauren syndrome. COMPARISON: 11:38 a.m. 09/13/2022 abdominal radiographs. FINDINGS/IMPRESSION: Supine radiographs of the abdomen. Previously demonstrated diffuse gaseous distension of the colon has significantly decreased. The colon measures up to 5.6 centimeters in diameter. Dictated by Brayan Dixon MD @ 09/14/2022 12:03:18 AM Dictated by: Brayan Dixon MD @ 09/14/2022 00:04:00 (Electronically Signed)
[2022-09-14 02:48] VITALS: PULSE 59; RESP 16; TEMP 36.3; O2SAT 96
--- NOTE | 2022-09-14 05:53 | PC.NURSE ---
[id number] Pt with developmental delays, mother at bedside who does all of pt cares. Ambulated to BR with mother, SBA. unable to get BP this shift, 1900 BP pt with increased agitation, 2300 and 0300 Pt sleeping and mother requested not to wake him up for BP, Dr Delgado updated and aware at 2345. Pt tolerating NPO with sips and chips, passing gas. BM last evening approx 1900. appears comfortable and in no distress or pain. No N/V
[2022-09-14 06:36] LABS: Basophils Percent Auto 0.5 % (0.0-3.0); Eosinophils Percent Auto 2.4 % (0.0-7.0); Hematocrit 41.2 % (37.0-53.0); Hemoglobin* 14.3 gm/dL (13.5-17.5); Lymphocytes Percent Auto 35.1 % (20-44); Mean Corpuscular HGB Conc 35 gm/dL (32-36); Mean Corpuscular Hemoglobin 31 pg (26-34); Mean Corpuscular Volume 90 fL (80-100); Monocytes Percent Auto 11.7 % (0.0-11.0); Neutrophils Percent Auto 50.3 % (42.0-72.0); Platelet Count* 182 K/uL (140-440); RDW Coefficient of Variation % 12.5 % (11.5-15.5); Red Blood Count 4.59 m/uL (4.30-5.90); White Blood Count* 3.68 K/uL (4.50-11.00)
[2022-09-14 06:40] LABS: Slide Review Reflex No
[2022-09-14] MEDS: QUETIAPINE 25 MG TABLET 50 MG PO (06:47)
[2022-09-14 06:57] LABS: Chloride* 105 mmol/L (96-114); Sodium* 141 mmol/L (135-149)
[2022-09-14 06:58] LABS: Potassium* 3.4 mmol/L (3.6-5.1)
[2022-09-14 07:00] LABS: Creatinine* 0.6 mg/dL (0.5-1.5); Estimated Glomerular Filt Rate 131 ml/min
[2022-09-14 07:01] LABS: Blood Urea Nitrogen* 13 mg/dL (5-24); Calcium* 8.6 mg/dL (8.4-10.6); Carbon Dioxide* 28 mmol/L (20-32); Glucose* 80 mg/dL (60-115)
[2022-09-14 07:04] LABS: C Reactive Protein* 6.6 mg/dL (0.5-1.0)
[2022-09-14] MEDS: LACTATED RINGERS 1000 ML 1,000 ML 125 ML IV (07:33)
[2022-09-14] MEDS: GABAPENTIN 100 MG CAPSULE 200 MG PO (07:47)
[2022-09-14] MEDS: SERTRALINE 100 MG TABLET 200 MG PO (07:49)
[2022-09-14 09:00] VITALS: PULSE 78; RESP 16; TEMP 36.9; O2SAT 97
--- NOTE | 2022-09-14 10:57 | PM.GSPN ---
Subjective Subjective Date Seen: 09/14/22 Interval history: Patient is doing well this morning. He is nonverbal, mom is at bedside. He did have a large bowel movement yesterday. Per his mom he has seemed very hungry. He did start on some Jell-O this morning, which he has tolerated without difficulty. Overall she feels like he is not in any pain and improved. Exam Narrative: Exam Narrative: General: Alert and oriented, no acute distress Abdomen: Soft, nontender nondistended. Const: Vital Signs, click to edit/add: Vital Signs - 24 hr 09/13/22 11:00 09/13/22 15:00 09/13/22 19:00 Temperature 98.0 F 98.0 F 98.7 F Pulse Rate [Left B rachial] 82 82 72 Respiratory Rate 16 16 16 Pulse Oximetry 96 96 97 Oxygen Delivery Me thod Room Air Room Air Room Air 09/13/22 23:00 09/14/22 02:48 09/14/22 09:00 Temperature 97.8 F 97.3 F L 98.4 F Pulse Rate [Left B rachial] 60 59 L 78 Respiratory Rate 16 16 16 Pulse Oximetry 95 96 97 Oxygen Delivery Me thod Room Air Room Air Room Air Labs/Imaging Labs Labs: CRP slightly elevated at 6, no leukocytosis. Imaging Imaging: Abdominal x-ray significantly improved, less distention of the colon and last gas. Progress Note: A&P Assessment and plan (1) Lauren syndrome: Problem details: Secretory diarrhea and hypokalemia, less likely to respond to decompression or neostigmine. Appears to be isolated finding without inciting cause such as recent surgery or infection. Abdominal exam benign today, improved. I discussed with Dr. Zimmerman. Continue with conservative management: NPO, IVF, serial abd XR. Continue to try to obtain Stool cultures and C diff. trial of bisacodyl suppository today. Status: Acute Assessment and Plan: Patient is hospital day 2. He has significantly improved after 1 large bowel movement, with less distention seen on abdominal x-ray and benign exam. Vital signs stable overnight. Will plan for another suppository this morning. Advance diet as tolerated. Once tolerating a regular diet patient is okay to continue with stool softeners and MiraLax. He may also benefit from establishing care with GI, since this is a chronic issue for the patient. Anticipate discharge later today versus tomorrow. Surgery to sign off at this time.
[2022-09-14 11:00] VITALS: RESP 16
--- NOTE | 2022-09-14 11:30 | CRLHL7_ITS ---
For Patients: As a result of the Century Cures Act, medical imaging exams and procedure reports are released immediately into your electronic medical record. You may view this report before your referring provider. If you have questions, please contact your health care provider. INDICATION: Lauren`s syndrome. COMPARISON: Radiographic examination of the abdomen September 13, 2022. TECHNIQUE: Supine radiograph of the abdomen. FINDINGS: The colon measures 5.4 cm in maximum diameter. Overall the bowel has distended less when compared to the previous imaging. Again appreciated is a metal screw projecting over the right sacrum stable over a period of time. Dictated by Stanley Miles MD @ 09/14/2022 12:27:06 PM (Electronically Signed)
--- NOTE | 2022-09-14 14:43 | PC.NURSE ---
Pt awake and alert, baseline non-verbal. Pt's mother is pt's primary caregiver, d/c instructions gone over with her at pt's bedside, questions answered. IV removed intact. Vitals stable this shift, unable to obtain BP as pt was intermit upset this shift 9moving, fidgeting) pt's mother states d/t not eating, mood had improved with food this afternoon, no signs of nausea after eating, no emesis, pt wanting to go home per pt's mother. Pt otherwise appearing comfortable and pain-free. Pt's mother denies concerns and happy to d/c back home. Pt given wheelchair ride to mother's car w/ mother at side for pt comfort.
== END 2022-09-14 14:25 | disposition home or self-care (01) ==
LOC: ED 18:54 → MEDSURG 23:04
PROVIDERS: Admitting Provider Emergency Medicine; Emergency Provider Emergency Medicine; PCP Family Medicine; Visit Provider Family Medicine
DX: K59.81 Ogilvie syndrome (principal); E87.6 Hypokalemia; R74.01 Elevation of levels of liver transaminase levels; R79.82 Elevated C-reactive protein (CRP); Q93.51 Angelman syndrome; K59.01 Slow transit constipation; R19.7 Diarrhea, unspecified; Z87.898 Personal history of other specified conditions; Z98.890 Other specified postprocedural states; R63.4 Abnormal weight loss; Z68.27 Body mass index [BMI] 27.0-27.9, adult
CPT/HCPCS: 36415; 74018; 74019; 74177; 80048; 80053; 80076; 83605; 83690; 83735; 84132; 85025; 86140; 87045; 87046; 87427; 87493; 87635; 96361; 96365; 96366; 96368; 96375; 99284; 99285; A9270; G0378; J1885; J2405; J3480; J7030; J7120; Q9967

== ENCOUNTER 2022-10-16 16:05 | Emergency (ER) | payer OTHER, MEDICAID, SELFPAY ==
[2022-10-16 16:12] VITALS: BP 124/84; PULSE 88; RESP 20; TEMP 36.4; O2SAT 98; BMI 27.3
--- NOTE | 2022-10-16 16:47 | ED_ITS ---
HPI - General Adult General Chief complaint: Dental/Oral/Mouth Injury/Pain Stated complaint: Jaw clenching, grinding severly Time Seen by Provider: 10/16/22 16:06 History of Present Illness HPI narrative: This 32-year-old male comes in with his parents who have concern about grinding of his teeth. 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 For the past day or so he has been holding his jaw tip toward the left so that his teeth are overlapping on the left side. Occasionally a grinding or clicking sound can be heard from bruxism. He arrives with normal vital signs. The patient's mother did give him some Tylenol and ibuprofen earlier today and this seemed to bring some relief. It is very difficult to tell if he is in pain. He seems to be interested in the TV and the computer they brought with him. Related Data Home Medications Medication Instructions Recorded Confirmed dextroamphetamine-amphetamine 10 10 mg PO DAILY 09/12/22 09/12/22 mg tablet (Adderall) dextroamphetamine-amphetamine 15 15 mg PO DAILY 09/12/22 09/12/22 mg tablet gabapentin 100 mg capsule 100 - 200 mg PO TID 09/12/22 09/13/22 gabapentin 400 mg capsule 400 mg PO HS 09/12/22 09/12/22 polyethylene glycol 3350 17 17 g PO DAILY PRN 09/12/22 09/13/22 gram/dose oral powder (Miralax) quetiapine 100 mg tablet 100 mg PO HS 09/12/22 09/12/22 quetiapine 25 mg tablet 50 mg PO BID@08,15 09/12/22 09/13/22 sertraline 100 mg tablet 200 mg PO DAILY 09/12/22 09/12/22 trazodone 100 mg tablet 100 mg PO HS 09/12/22 09/12/22 Previous Rx's Medication Instructions Recorded bisacodyl 10 mg rectal suppository 10 mg MA DAILY PRN constipation 09/14/22 #12 ea potassium chloride 10 mEq 10 meq PO DAILY #30 caps 09/14/22 capsule,extended release Allergies Allergy/AdvReac Type Severity Reaction Status Date / Time latex Allergy Intermediate Verified 09/12/22 15:58 Sulfa (Sulfonamide Allergy Intermediate Verified 09/12/22 15:58 Antibiotics) Review of Systems Narrative: Unable to obtain due to nonverbal status. [facility] Medical History (Updated 10/16/22 @ 16:54 by Otto Barreto MD) Angelman's syndrome ?Q93.51 - Angelman syndrome (ICD-10) Anxiety ?F41.9 - Anxiety disorder, unspecified (ICD-10) Constipation ?K59.00 - Constipation, unspecified (ICD-10) Elevated AST (SGOT) ?R74.01 - Elevation of levels of liver transaminase levels (ICD-10) History of seizure ?Z87.898 - Personal history of other specified conditions (ICD-10) Sleep disturbance ?G47.9 - Sleep disorder, unspecified (ICD-10) Slow transit constipation ?K59.01 - Slow transit constipation (ICD-10) Surgical History (Updated 09/12/22 @ 21:24 by Karen Delgado MD) H/O umbilical hernia repair ?Z98.890 - Other specified postprocedural states (ICD-10) ?Z87.19 - Personal history of other diseases of the digestive system (ICD-10) History of colon resection (~04/2021) ?Z90.49 - Acquired absence of other specified parts of digestive tract (ICD- 10) S/P tonsillectomy and adenoidectomy ?Z90.89 - Acquired absence of other organs (ICD-10) [place] teeth extracted ?K08.409 - Partial loss of teeth, unspecified cause, unspecified class (ICD- 10) Family History (Updated 09/12/22 @ 22:57 by Karen Delgado MD) Maternal Grandmother Breast cancer Lung cancer Maternal Grandfather Diabetes Heart disease Paternal Grandfather Diabetes Heart disease Neuropathy Social History (Updated 09/12/22 @ 21:58 by Karen Delgado MD) Narrative: Lives at home with his parents and has a [employer]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 Smoking Status: Never smoker Do you use any of these nicotine containing products: None Second hand tobacco smoke exposure: No How often do you have a drink containing alcohol: never How often do you have six or more drinks on one occasion: Never AUDIT-C Alcohol total score: 0 Non-prescribed substance use: denies use Caffeine: No service: No Exam Narrative: Exam Narrative: Constitutional: Well-developed, well-nourished, no acute distress. HEENT: Normocephalic, atraumatic. He is able to move his jaw freely but is preferring to shift his mandible to the left and bite down causing his left eye tooth to cross over his bite. I was able to examine his mouth with a tongue blade and did not see any sign of dental caries or abscess. Neck: Normal range of motion. Nontender. Supple. Heart: Intact distal pulses. Lungs: No chest discomfort. No wheezes, rhonchi, or rales. Abdomen: Nontender. Back: Normal range of motion. Extremities: Normal range of motion. No injury. Skin: Intact. No rash. Warm. No erythema or pallor. Neurologic: No altered sensation. No weakness. Alert and oriented. Psychiatric: No suicidality. No anxiety or depression. No insomnia. Nursing notes and vitals signs are reviewed. Const: Vital Signs, click to edit/add: Vital Signs - 24 hr 10/16/22 16:12 Temperature 97.6 F Pulse Rate [Pulse Oximeter] 88 Respiratory Rate 20 Blood Pressure [Ri ght Upper Arm] 124/84 Pulse Oximetry 98 Oxygen Delivery Me thod Room Air Course Vital Signs Vital signs: Initial Vital Signs Temperature 97.6 F 10/16/22 16:12 Temperature Source Temporal Artery Scan 10/16/22 16:12 Pulse Rate 88 10/16/22 16:12 Pulse Strength 0+ Absent 10/16/22 16:12 Respiratory Rate 20 10/16/22 16:12 Blood Pressure 124/84 10/16/22 16:12 Blood Pressure Mean 97 10/16/22 16:12 Blood Pressure Position Sitting 10/16/22 16:12 Pulse Oximetry 98 10/16/22 16:12 Oxygen Delivery Method Room Air 10/16/22 16:12 Vital Signs Temperature 97.6 F 10/16/22 16:12 Pulse Rate 88 10/16/22 16:12 Respiratory Rate 20 10/16/22 16:12 Blood Pressure 124/84 10/16/22 16:12 Pulse Oximetry 98 10/16/22 16:12 Oxygen Delivery Method Room Air 10/16/22 16:12 Temperature 97.6 F 10/16/22 16:12 Pulse Rate 88 10/16/22 16:12 Respiratory Rate 20 10/16/22 16:12 Blood Pressure 124/84 10/16/22 16:12 Pulse Oximetry 98 10/16/22 16:12 Oxygen Delivery Method Room Air 10/16/22 16:12 Medical Decision Making MDM Narrative Medical decision making narrative: This patient has nonverbal status and is difficult to assess what is going on. He does arrive with normal vital signs. His parents are concerned that he persistently clenches his teeth with his mandible deviated to the left causing an overbite on that side. There is no sign of abscess or fractured tooth. I did discuss options for imaging, labs, and treatment with the patient's parents. They are agreeable to trying a muscle relaxant. He did receive a prescription for Flexeril. I also reviewed dosings for Tylenol and ibuprofen. I did also suggest a mouth guard but the parents state that he would not tolerate that. Discharge Plan Discharge Clinical Impression: Bruxism Patient Disposition: Home w/ Parent or Adult Condition: Unchanged Additional Instructions: Take Flexeril as needed and directed. Also okay to take Tylenol 2 tablets 4 times a day and ibuprofen 3 tablets 4 times a day. These can be given at the same time or alternated every 2-3 hours as desired. Follow-up with dentist or primary physician or return if worsening. Prescriptions: No Action quetiapine 25 mg tablet 50 mg PO BID@08,15 Patient Comments: TAKE TWO TABLETS (50MG) BY MOUTH TWICE A DAY (morning and 3pm) gabapentin 400 mg capsule 400 mg PO HS Patient Comments: TAKE ONE (1) CAPSULE BY MOUTH AT BEDTIME TAKE WITH 100MG CAPSULE TO = 500MG AT BEDTIME sertraline 100 mg tablet 200 mg PO DAILY Patient Comments: TAKE TWO TABLETS BY MOUTH DAILY quetiapine 100 mg tablet 100 mg PO HS Patient Comments: TAKE ONE (1) TABLET BY MOUTH AT BEDTIME trazodone 100 mg tablet 100 mg PO HS Patient Comments: TAKE ONE TABLET BY MOUTH AT BEDTIME gabapentin 100 mg capsule 100 - 200 mg PO TID Patient Comments: TAKE TWO CAPSULES BY MOUTH TWICE A DAY (morning and 3pm) AND ONE CAPSULE AT BEDTIME dextroamphetamine-amphetamine [Adderall] 10 mg tablet 10 mg PO DAILY dextroamphetamine-amphetamine 15 mg tablet 15 mg PO DAILY Patient Comments: TAKE ONE TABLET BY MOUTH EVERY MORNING. (ALONG WITH 10MG FOR TOTAL DOSE OF 25MG DAILY) polyethylene glycol 3350 [Miralax] 17 gram/dose powder 17 g PO DAILY PRN potassium chloride 10 mEq capsule, extended release 10 meq PO DAILY Qty: 30 0RF bisacodyl 10 mg suppository 10 mg MA DAILY PRN (Reason: constipation) Qty: 12 0RF Follow Up/Referrals: Krystal Davidson MD [Primary Care Provider] - Stand Alone Forms: [employer] Info Instructions
--- OUTSIDE RECORDS SUMMARY | 2022-10-16 16:53 | XMS_ITS | Continuity of Care Document ---
Author Name Unknown Organization [facility] Address [address] [address] [place] [address] Phone Care Team Providers Care Attending Urologist Name Role Phone Kwaku Hays MD, Joon Unavailable Unavailabl e Procedures Procedure Date Sigmoidoscopy Flex; W/decomp V Moderate Sedation, Initial 15 minutes Oc Init Hosp-da E&m Mod Severity Advance Directives Directive Yes / No Effective Date File Name No Information Encounters Encounter Description Practice Location Reason(s) For Visit Diagnoses Date Provider Providers Copied on Encounter [facility], [address] [address], [place], [place], [id number], tel:[phone] [facility] No Information Kwaku Dupree. [address] [place] [address], [place] [address], [place], [place], [id number], [place]. tel:[phone] Init Hosp-da E&m Mod Severity [facility], [address] [address], [place], [place], [id number], [place] tel:[phone] [facility] No Information Inocente Abdalla. [address] [place] [address], [place] [address], [place], [place], [id number], [place]. tel:[phone] Referring Provider: Gregg Maria MD, [address] [place], [address]. tel:[phone] Family History Family Member Type Diagnosis Age At Onset No Information Payers Payer name Insurance type Covered democrat ID Authoriza tion(s) No Information Social History Type Description Quantity Date Captured Comments Sex Male Smoking Status No Information Chief Complaint And Reason For Visit No Information Reason For Referral Reason For Referral No Information Plan Of Treatment Date Type Action Status Appointment Adithya Muñoz BOOKED History Of Present Illness Encounter Date Complaint History Of Prese nt Illness No Information Functional Status Date Functional Assessmen t No Information Instructions Date Instruction Additional Infor mation No Information Assessments Type Assessment Date No Information Patient Care Teams Name Effective Dates (start - stop) Status Members No Information
== END 2022-10-16 17:09 | disposition home or self-care (01) ==
PROVIDERS: Emergency Provider Emergency Medicine Emergency Medical Services; PCP Family Medicine
DX: F45.8 Other somatoform disorders (principal)
CPT/HCPCS: 99282; 99284

== ENCOUNTER 2024-01-18 21:37 | Emergency (ER) | payer OTHER, MEDICAID, SELFPAY ==
[2024-01-18 21:54] VITALS: PULSE 92; RESP 18; TEMP 36.9; O2SAT 99
--- NOTE | 2024-01-18 22:15 | CRLHL7_ITS ---
For Patients: As a result of the Century Cures Act, medical imaging exams and procedure reports are released immediately into your electronic medical record. You may view this report before your referring provider. If you have questions, please contact your health care provider. INDICATION: Abdominal pain. TECHNIQUE: Multiplanar CT examination of the abdomen and pelvis was performed without the use of intravenous contrast. COMPARISON: CT abdomen and pelvis 09/12/2022 and 05/15/2021. FINDINGS: Limited evaluation due to motion artifact on the paucity of intra-abdominal fat. Lower chest: No focal consolidation. Normal heart size. No pleural effusions or pneumothorax. Subsegmental and dependent atelectasis. Small hiatal hernia. Liver: Within normal limits. Gallbladder: Not definitively visualized. Biliary: Unremarkable. Pancreas: Visualized pancreas appears within normal limits. Spleen: Unremarkable. Adrenal glands: Unremarkable. Renal/ureters/bladder: The kidneys appear normal in size no hydronephrosis. Limited evaluation for renal masses without the use of intravenous contrast. The bladder is within normal limits. Pelvis: Unremarkable. Gastrointestinal: Marked pancolonic distention with air-fluid level with the transverse colon measuring up to 10.7 cm. No significant colonic wall thickening. No transition point identified. No pneumatosis intestinalis. No small bowel obstruction. No sigmoid or cecal volvulus. Vasculature: No aortic aneurysm. No significant atherosclerotic calcifications. No portal venous gas. Lymph nodes: No pathologic lymphadenopathy by size criteria. Peritoneum: No free fluid or pneumoperitoneum. No drainable fluid collections. Abdominal wall/soft tissues: Mild diffuse anasarca. Bones: No acute osseous abnormalities. Mild multilevel degenerative changes of the thoracolumbar spine. IMPRESSION: 1. Limited evaluation due to motion artifact and paucity of intra-abdominal fat. 2. Marked nonspecific pancolonic gaseous distention without significant colonic wall thickening, without transition point identified. No pneumatosis intestinalis or portal venous gas. Potential differential considerations include, but are not limited to, adynamic ileus and [place] syndrome. No small bowel obstruction. Please note that all CT scans at this facility use dose modulation, iterative reconstruction, and/or weight-based dosing when appropriate to reduce radiation dose to as low as reasonably achievable. Dictated by Gurmeet Gray MD @ 01/19/2024 12:27:23 AM (Electronically Signed)
--- NOTE | 2024-01-18 22:16 | ED.GENADULT ---
HPI - General Adult General Chief complaint: Abdominal Pain Stated complaint: bloated Time Seen by Provider: 01/18/24 21:53 History of Present Illness HPI narrative: This 33-year-old male comes in with his parents report abdominal pain and distention that began today. The patient has Angelman syndrome an [place] syndrome and is nonverbal. He has had symptoms like this in the past. Parents report that he has had a partial bowel resection in the past. He has slow transit constipation. There is no report of fever, vomiting, or diarrhea. He arrives here with normal vital signs. Related Data Home Medications ?Medication ?Instructions ?Recorded ?Confirmed dextroamphetamine-amphetamine 10 10 mg PO DAILY 09/12/22 01/18/24 mg tablet (Adderall) dextroamphetamine-amphetamine 15 15 mg PO DAILY 09/12/22 01/18/24 mg tablet gabapentin 100 mg capsule 100 - 200 mg PO TID 09/12/22 01/18/24 gabapentin 400 mg capsule 400 mg PO HS 09/12/22 01/18/24 polyethylene glycol 3350 17 17 g PO DAILY PRN 09/12/22 01/18/24 gram/dose oral powder (Miralax) quetiapine 100 mg tablet 100 mg PO HS 09/12/22 01/18/24 quetiapine 25 mg tablet 50 mg PO BID@08,15 09/12/22 01/18/24 sertraline 100 mg tablet 200 mg PO DAILY 09/12/22 01/18/24 trazodone 100 mg tablet 100 mg PO HS 09/12/22 01/18/24 olanzapine 2.5 mg tablet 2.5 mg PO QPM 01/18/24 01/18/24 Previous Rx's ?Medication ?Instructions ?Recorded bisacodyl 10 mg rectal suppository 10 mg ID DAILY PRN constipation 09/14/22 #12 ea potassium chloride 10 mEq 10 meq PO DAILY #30 caps 09/14/22 capsule,extended release Allergies Allergy/AdvReac Type Severity Reaction Status Date / Time latex Allergy Intermediate Verified 01/18/24 21:53 Sulfa (Sulfonamide Allergy Intermediate Verified 01/18/24 21:53 Antibiotics) Review of Systems Status of ROS: Reports: 10 or more systems reviewed and unremarkable except as noted in History and below Narrative: Unable to obtain as he is nonverbal. [facility] Medical History (Updated 01/19/24 @ 00:34 by Otto Barreto MD) Elevated AST (SGOT) ?R74.01 - Elevation of levels of liver transaminase levels (ICD-10) Slow transit constipation ?K59.01 - Slow transit constipation (ICD-10) Sleep disturbance ?G47.9 - Sleep disorder, unspecified (ICD-10) Anxiety ?F41.9 - Anxiety disorder, unspecified (ICD-10) History of seizure ?Z87.898 - Personal history of other specified conditions (ICD-10) Constipation ?K59.00 - Constipation, unspecified (ICD-10) Angelman's syndrome ?Q93.51 - Angelman syndrome (ICD-10) Surgical History (Updated 09/12/22 @ 21:24 by Karen Delgado MD) H/O umbilical hernia repair ?Z98.890 - Other specified postprocedural states (ICD-10) ?Z87.19 - Personal history of other diseases of the digestive system (ICD-10) [place] teeth extracted ?K08.409 - Partial loss of teeth, unspecified cause, unspecified class (ICD-10) S/P tonsillectomy and adenoidectomy ?Z90.89 - Acquired absence of other organs (ICD-10) History of colon resection (~04/2021) ?Z90.49 - Acquired absence of other specified parts of digestive tract (ICD-10) Family History (Updated 09/12/22 @ 22:57 by Karen Delgado MD) Maternal Grandmother Breast cancer Lung cancer Maternal Grandfather Diabetes Heart disease Paternal Grandfather Diabetes Heart disease Neuropathy Social History (Updated 09/12/22 @ 21:58 by Karen Delgdao MD) Narrative: 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 Smoking Status: Never smoker Do you use any of these nicotine containing products: None Second hand tobacco smoke exposure: No How often do you have a drink containing alcohol: never How often do you have six or more drinks on one occasion: Never AUDIT-C Alcohol total score: 0 Non-prescribed substance use: denies use Caffeine: No service: No Exam Narrative: Exam Narrative: Constitutional: Well-developed, well-nourished, no acute distress. HEENT: Normocephalic, atraumatic. Neck: Normal range of motion. Nontender. Supple. Heart: Regular. No murmurs. Normal rate. Intact distal pulses. Lungs: Clear to auscultation. No chest discomfort. No wheezes, rhonchi, or rales. Abdomen: Normal bowel sounds. Distended. Genitalia: Deferred. Back: No midline tenderness. Normal range of motion. Extremities: Normal range of motion. No injury. Skin: Intact. No rash. Warm. No erythema or pallor. Neurologic: No altered sensation. No weakness. Nursing notes and vitals signs are reviewed. Const: Vital Signs, click to edit/add: Vital Signs - 24 hr 01/18/24 21:54 01/18/24 22:23 Temperature 98.4 F Pulse Rate [Pulse Oximeter] 92 Respiratory Rate 18 Blood Pressure [Ri ght Upper Arm] 122/72 Pulse Oximetry 99 Oxygen Delivery Me thod Room Air Course Vital Signs Vital signs: Initial Vital Signs Temperature 98.4 F 01/18/24 21:54 Temperature Source Temporal Artery Scan 01/18/24 21:54 Pulse Rate 92 01/18/24 21:54 Respiratory Rate 18 01/18/24 21:54 Pulse Oximetry 99 01/18/24 21:54 Oxygen Delivery Method Room Air 01/18/24 21:54 Vital Signs Temperature 98.4 F 01/18/24 21:54 Pulse Rate 92 01/18/24 21:54 Respiratory Rate 18 01/18/24 21:54 Pulse Oximetry 99 01/18/24 21:54 Oxygen Delivery Method Room Air 01/18/24 21:54 Temperature 98.4 F 01/18/24 21:54 Pulse Rate 92 01/18/24 21:54 Respiratory Rate 18 01/18/24 21:54 Blood Pressure 122/72 01/18/24 22:23 Pulse Oximetry 99 01/18/24 21:54 Oxygen Delivery Method Room Air 01/18/24 21:54 Medical Decision Making MDM Narrative Medical decision making narrative: This patient comes in with distended abdomen and appears at times to be uncomfortable. He does have a history of Angelman syndrome and [place] syndrome. He does have slow transit of his bowels at times. He did have a recent trip a few days ago and this may have triggered some paucity of his bowels. CT imaging is obtained without contrast and does show marked gases distention of his abdomen. There is no sign of obstruction or colonic wall thickening. The patient's parents state that he has had episodes like this in the past. His mother has administered a suppository with good results in the past. They feel okay to take him home and hopefully he will be able to release this gas before long. Imaging Data CT scan - abdomen: Radiologist's impression: 1. Limited evaluation due to motion artifact and paucity of intra-abdominal fat. 2. Marked nonspecific pancolonic gaseous distention without significant colonic wall thickening, without transition point identified. No pneumatosis intestinalis or portal venous gas. Potential differential considerations include, but are not limited to, adynamic ileus and [place] syndrome. No small bowel obstruction Discharge Plan Discharge Clinical Impression: Lauren syndrome, Slow transit constipation Patient Disposition: Home w/ Parent or Adult Condition: Unchanged Additional Instructions: Use [id number] medicines and remedies as needed and directed for slow transit constipation issues. Follow up with MD return if worsening. Prescriptions: No Action olanzapine 2.5 mg tablet 2.5 mg PO QPM quetiapine 25 mg tablet 50 mg PO BID@08,15 Patient Comments: TAKE TWO TABLETS (50MG) BY MOUTH TWICE A DAY (morning and 3pm) gabapentin 400 mg capsule 400 mg PO HS Patient Comments: TAKE ONE (1) CAPSULE BY MOUTH AT BEDTIME TAKE WITH 100MG CAPSULE TO = 500MG AT BEDTIME sertraline 100 mg tablet 200 mg PO DAILY Patient Comments: TAKE TWO TABLETS BY MOUTH DAILY quetiapine 100 mg tablet 100 mg PO HS Patient Comments: TAKE ONE (1) TABLET BY MOUTH AT BEDTIME trazodone 100 mg tablet 100 mg PO HS Patient Comments: TAKE ONE TABLET BY MOUTH AT BEDTIME gabapentin 100 mg capsule 100 - 200 mg PO TID Patient Comments: TAKE TWO CAPSULES BY MOUTH TWICE A DAY (morning and 3pm) AND ONE CAPSULE AT BEDTIME dextroamphetamine-amphetamine [Adderall] 10 mg tablet 10 mg PO DAILY dextroamphetamine-amphetamine 15 mg tablet 15 mg PO DAILY Patient Comments: TAKE ONE TABLET BY MOUTH EVERY MORNING. (ALONG WITH 10MG FOR TOTAL DOSE OF 25MG DAILY) polyethylene glycol 3350 [Miralax] 17 gram/dose powder 17 g PO DAILY PRN potassium chloride 10 mEq capsule, extended release 10 meq PO DAILY Qty: 30 0RF bisacodyl 10 mg suppository 10 mg ID DAILY PRN (Reason: constipation) Qty: 12 0RF Follow Up/Referrals: Krystal Davidson MD [Referring] - Stand Alone Forms: [employer] Info Instructions
[2024-01-18 22:23] VITALS: BP 122/72
--- OUTSIDE RECORDS SUMMARY | 2024-01-18 22:25 | XMS_ITS | Clinical Summary ---
Author Organization [facility] Address [place], [place] [address] Care Team Providers Care Foundation Drill Operator Helper Name Role Phone Ale Paris DO Primary Care Provider [phone] Allergies Active Allergy Reactions Criticality Noted Date Comments Latex Rash 06/08/2009 Sulfa (Sulfonamide Antibiotics) Rash 08/2006 Medications Medication Sig Dispensed Refills Start Date End Date Status Amphetamine-Dextroa mphetamine (ADDERALL) 15 mg tabletIndications:O ther specified congenital anomalies Take by mouth. 0 08/27/2009 Active amphetamine-dextroa mphetamine (ADDERALL) 10 mg tablet Take 1 tablet by mouth once daily. 0 01/03/2011 Active traZODone (DESYREL) 100 mg tablet Take 1 tablet by mouth at bedtime. 0 05/13/2016 Active sertraline (ZOLOFT) 100 mg tablet Take 2 tablets once daily 0 09/27/2016 Active disposable gloves (DISPOSABLE LATEX-FREE GLOVES)Indications: Angelman's syndrome For home use. Size LARGE 1 box 09/13/2017 Active Shower ChairIndications:An mack's syndrome For home use. 1 Device 09/14/2017 Active Side RailsIndications:An mack's syndrome Hand rails in bathroom for patient assistance/stabili ty 2 Units 09/14/2017 Active VITAMIN D 25 mcg (1,000 unit) tabletIndications:E ncounter for herb and vitamin supplement management TAKE ONE TABLET BY MOUTH ONCE DAILY 100 tablet 1 03/19/2020 Active QUEtiapine (SEROQUEL) 25 mg tablet Take 50 mg by mouth 2 times daily. 50 mg PO at 8am and noon 04/08/2020 Active QUEtiapine (SEROQUEL) 100 mg tablet Take 100 mg by mouth at bedtime. 04/08/2020 Active sennosides (SENNA) 8.6 mg tabletIndications:C hronic constipation Take 1 Tablet (8.6 mg) by mouth once daily if needed for Constipation. 180 Tablet 3 02/23/2022 Active polyethylene glycol (MIRALAX; GLYCOLAX) 17 g powder for solutionIndications :Chronic constipation Take 1/2 - 1 capful po daily as needed for constipation 100 Each 3 06/01/2022 Active OneLAX bisacodyL 10 mg suppository INSERT ONE 10 MG SUPPOSITORY RECTALLY EVERY DAY NEEDED FOR CONSTIPATION. 09/14/2022 Active Amphetamine-Dextroa mphetamine (ADDERALL) 30 mg tablet 05/27/2023 Active gabapentin (NEURONTIN) 400 mg capsule take 1 capsule by oral route every day at nighttime 11/09/2022 Active medication order composerIndications :Angelman's syndrome KAILEE P[employer] UPS SIZE LARGE EXTRA ABSORBANT 16 PER BAG, 64 BAGS PER CASE 1 unit. 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 Was on Depakote - Off meds since late teens Anxiety 10/19/2014 Sleep disturbance, unspecified 10/19/2014 Disturbances in tooth eruption 06/16/2009 Unspecified constipation 02/19/2007 Angelman syndrome 01/22/2007 Resolved Problems Problem Noted Date Diagnosed Date Resolved Date Seizures 06/01/2022 06/01/2022 Encounters Date Type Department Care Team Description 12/27/2023 9:00 AM CDT Home Care Visit [facility] [address] [place] [address] Nic Sifuentes, PT PT - OASIS DISCHARGE 12/20/2023 10:00 AM CDT Home Care Visit [facility] [address] [place] [address] Nic Sifuentes, PT PT - HOME VISIT 12/13/2023 9:00 AM CDT Home Care Visit [facility] [address] [place] [address] Nic Sifuentes, PT PT - HOME VISIT 12/06/2023 8:45 AM CDT Home Care Visit [facility] [address] [place] [address], [place] [address] Nic Sifuentes, PT PT - OASIS START OF CARE 12/06/2023 Plan of Care Documentation [facility] [address] [place] [address], [place] [address] 12/06/2023 Travel 12/01/2023 7:40 AM CDT Office Visit [facility] [address] [place] [address] Ale Paris, Musculoskeletal Problem 12/01/2023 Travel from Last 3 Months Immunizations Name Administration Dates Next Due AMB Influenza, IIV3 (Age >=3 years)(Flu Clinic Only) 05/14/2012,05/25/2011,06/04/2010, 009 AMB Influenza, IIV4 PF (=>6 mos Flulaval,Fluzone Fluarix)(Flu Clinic Only) 04/26/2019,04/27/2018,06/10/2014 DTP 03/27/1991, 0,1989, 990 DTaP 02/20/1995 HIB PRP-OMP (PedvaxHIB) 03/27/1991,11/05/1990, Hepatitis B (Peds) 03/11/2002,10/08/2001, 002 Influenza, IIV3 (Age 6-35 mos) 04/26/2013,2010 Influenza, IIV3 (Age >=3 years) 04/26/20 13,05/14/2012,06/04/2010, 009,05/21/2007,05/01/2006,05/23/2005,02/2004,07/03/2003 Influenza, IIV4 06/01/2022, 1,04/23/2020, 016,04/15/2015,06/10/2014 Influenza, IIV4 (=>6mos) MDV 05/14/2017 MMR 09/04/2001,11/05/1990 Oral Polio Vaccine 02/20/1995, 1,1989, 990 Td (Age >=7 Years) 06/01/2022,02/02/2004 Tdap 12/05/2011 Tuberculin (PPD) 10/20/2014,02/11/2002 Family History Medical History Relation Name Comments Good Health Brother 2 Good Health Father Diabetes Maternal Grandfather Heart Disease Maternal Grandfather Cancer-breast Maternal Grandmother Liver cancer Maternal Grandmother Good Health Mother Diabetes Paternal Grandfather Heart Disease Paternal Grandfather Neuropathy Paternal Grandfather Good Health Sister 2 Relation Name Status Comments Brother 1 Alive Brother 2 Father Alive Maternal Grandfather Maternal Grandmother Mother Alive Paternal Grandfather Paternal Grandmother Sister 1 Alive Sister 2 Social History Tobacco Use Types Packs/Day Years Used Date Smoking Tobacco: Never Smokeless Tobacco: Never Tobacco Cessation:Counseling Given: Yes Alcohol Use Standard Drinks/Week Comments No 0 (1 standard drink = 0.6 oz pur e alcohol) PHQ-2 Answer Date Recorded PHQ-2 TOTAL SCORE 0 06/01/2022 Social Connections Answer Date Recorded Frequency of Communication with Friends and Fami ly 0 06/05/2023 Financial Resource Strain Answer Date R ecorded Difficulty of Paying Living Expenses 3 06/05/2023 Difficulty of Paying Living Expenses Not on file 06/05/2023 Food Insecurity Answer Date Recorded Worried About Running Out of Food in the Last Ye ar 1 06/05/2023 Transportation Needs Answer Date Record ed Lack of Transportation (Medical) 1 06/05/2023 Housing Stability Answer Date Recorded Unable to Pay for Housing in the Last Year 1 06/05/2023 Sex and Gender Information Value Date Recorded Sex Assigned at Not on file Gender Identity Not on file Sexual Orientation Not on file Obstetrics History Last Filed Vital Signs Vital Sign Reading Time Taken Comments Blood Pressure 138/84 12/27/2023 9:25 AM CDT Pulse 84 12/27/2023 9:25 AM CDT Temperature 37.4 ??C (99.4 ??F) 12/27/2023 9:25 AM CD T Respiratory Rate 18 12/27/2023 9:25 AM CDT Oxygen Saturation 95% 12/27/2023 9:25 AM CDT Inhaled Oxygen Concentration - - Weight 84.8 kg (187 lb) 12/01/2023 7:52 AM CDT Height 182.9 cm (6') 06/05/2023 7:33 AM ACCOUNTS RECEIVABLE ANALYST Body Mass Index 25.36 06/05/2023 7:33 AM ACCOUNTS RECEIVABLE ANALYST Plan of Treatment Health Maintenance Due Date Last Done Comments HIV for age 15-65 2004 Hepatitis C screening for age 18-79 2007 COVID-19 vaccine series ( season) 2023 05/19/2022, 07/08/2021, 11/26/2020, Additional history exists Depression screening for age 12+ 06/01/2023 06/01/2022, 04/23/2020, 04/23/2020, Additional history exists Influenza for age 9-49 03/24/2024 , 05/26/2021, 04/23/2020, Additional history exists BMI (ht and wt on same day) for age 18+ 06/05/2024 06/05/2023, 06/01/2022, 05/26/2021, Additional history exists Tetanus booster 06/01/2032 06/01/2022, 11/21, 02/02/2004 Tdap Completed 12/05/2011 Pneumococcal series for age 6-64 Aged Out No longer eligible based on patient's age to complete this topic Additional Health Concerns Infection Onset Date Last Indicated MRSA 07/07/2015 07/07/2015 Advance Directives * Full Code (Latest Code Status on File) Date Activated Date Inactivated Comments 06/16/2009 12:19 PM 06/16/2009 8:17 PM Care Teams Foundation Drill Operator Helper Relationship Specialty Start Date End Date Ale Paris [place] [address] [place] [address] PCP - General Family Practice 06/05/23
--- OUTSIDE RECORDS SUMMARY | 2024-01-18 22:25 | XMS_ITS | Clinical Summary ---
Author Organization [facility] Address [address] [place] [address]. [place] [address] Care Team Providers Care Normalizer Name Role Phone Krystal Davidson MD Primary Care Provider Unavailab le Allergies Active Allergy Reactions Criticality Noted Date Comments Latex 05/15/2021 Sulfa Antibiotics 05/15/2021 Medications Medication Sig Dispensed Refills Start Date End Date Status amphetamine-dextro amphetamine (ADDERALL) 10 MG tablet Take 10 mg by mouth every morning Take with 15 mg tablet for a total of 25 mg Active amphetamine-dextro amphetamine (ADDERALL) 15 MG tablet Take 15 mg by mouth every morning Take with 10 mg tablet for a total of 25 mg Active sertraline (ZOLOFT) 100 MG tablet Take 200 mg by mouth every morning Active gabapentin (NEURONTIN) 100 MG capsule Take 200 mg by mouth 2 times daily Take in the morning and at 3 PM Active gabapentin (NEURONTIN) 100 MG capsule Take 100 mg by mouth every evening Take with gabapentin 400 mg for a total of 500 mg in the evening. Take at 9 PM Active gabapentin (NEURONTIN) 400 MG capsule Take 400 mg by mouth every evening Take with gabapentin 100 mg for a total of 500 mg in the evening. Take at 9 PM Active QUEtiapine (SEROQUEL) 25 MG tablet Take 50 mg by mouth 2 times daily Take in the morning and at 3 PM Active Vitamin D3 (CHOLECALCIFEROL) 25 mcg (1000 units) tablet Take 1 tablet by mouth daily Active QUEtiapine (SEROQUEL) 100 MG tablet Take 100 mg by mouth every evening Take at 9 PM Active traZODone (DESYREL) 100 MG tablet Take 100 mg by mouth every evening Take at 9 PM Active polyethylene glycol (MIRALAX) 17 GM/Dose powder Take 1/2 - 1 capful po daily as needed for constipation 02/23/2022 Active senna (SENOKOT) 8.6 MG tablet Take 8.6 mg by mouth 02/23/2022 A ctive ibuprofen (ADVIL/MOTRIN) 600 MG tabletIndications: Pain, dental Take 1 tablet (600 mg) by mouth every 6 hours as needed for moderate pain 12 tablet 03/18/2022 Active Active Problems Problem Noted Date Diagnosed Date Pain, dental 03/18/2022 Angelman syndrome 05/15/2021 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 Social History Tobacco Use Types Packs/Day Years Used Date Smoking Tobacco: Never Smokeless Tobacco: Never Alcohol Use Standard Drinks/Week Comments Never 0 (1 standard drink = 0.6 oz pur e alcohol) Adolescent Education Answer Date Record ed Getting School Help Needed Not on file 04/15 Sex and Gender Information Value Date Recorded Sex Assigned at Not on file Gender Identity Not on file Sexual Orientation Not on file Last Filed Vital Signs Vital Sign Reading Time Taken Comments Blood Pressure 112/67 03/18/2022 2:59 PM CDT Pulse 75 03/18/2022 2:15 PM CDT Temperature 36.8 ??C (98.2 ??F) 03/18/2022 2:59 PM CD T Respiratory Rate 20 03/18/2022 10:00 AM CDT Oxygen Saturation 97% 03/18/2022 2:59 PM CDT Inhaled Oxygen Concentration - - Weight 87 kg (191 lb 12.8 oz) 03/18/2022 10:00 A M CDT Height 188 cm (6' 2) 03/18/2022 10:00 AM CDT Body Mass Index 24.63 03/18/2022 10:00 AM CDT Plan of Treatment Health Maintenance Due Date Last Done Comments ANNUAL REVIEW OF HM ORDERS 1989 HIV SCREENING 2004 HEPATITIS C SCREENING 2007 DTAP/TDAP/TD IMMUNIZATION (4 - Td or Tdap) 12/04/2021 12/05/2011, 02/02/2004, 02/20/1995 YEARLY PREVENTIVE VISIT 05/26/2022 05/26/2021, 04/23 COVID-19 Vaccine ( - season) 2023 07/08/2021, 11/26/2020, 10/28/2020 PHQ-2 (once per calendar year) 2023 INFLUENZA VACCINE (Season Ended) 2024 05/26/2021, 04/23/2020, 04/26/2019, Additional history exists ADVANCE CARE PLANNING 01/17/2027 01/17/2022, 022 HEPATITIS B IMMUNIZATION Completed 002, 10/08/2001, 09/03/2001 HPV IMMUNIZATION Aged Out No longer e ligible based on patient's age to complete this topic IPV IMMUNIZATION Aged Out No longer e ligible based on patient's age to complete this topic MENINGITIS IMMUNIZATION Aged Out No l onger eligible based on patient's age to complete this topic Pneumococcal Vaccine: Pediatrics (0 to 5 Years) and At-Risk Patients (6 to 64 Years) Aged Out No longer eligible based on patient's age to complete this topic RSV MONOCLONAL ANTIBODY Aged Out No l onger eligible based on patient's age to complete this topic Advance Directives For more information, please contact: [phone] Documents on File Type Date Recorded 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 Advance Directives and Living Will 01/17/2022 Dwayne ([place] Sadie ([place] Wanda Legal Guardianship 09-19-2011 * Full Code (Latest Code Status on File) Date Activated Date Inactivated Comments 05/17/2021 7:37 PM 05/21/2021 1:45 PM All basic and advanced life-sustaining interventions are performed as appropriate Question Answer Comments Code status determined by: Discussion with donavon ashton/ legal decision maker * Full Code Date Activated Date Inactivated Comments 05/15/2021 7:37 PM 05/17/2021 7:37 PM All basic and advanced life-sustaining interventions are performed as appropriate Question Answer Comments Code status determined by: Discussion with donavon ashton/ legal decision maker Care Teams Normalizer Relationship Specialty Start Date End Date Shinglehouse, Krystal L, MD PCP - General Family Medicine 05/15/21
--- OUTSIDE RECORDS SUMMARY | 2024-01-18 22:25 | XMS_ITS | Referral Summary ---
Author Organization [facility] Address [address] [place] [address]. 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 Expl anation Advance Directives and Living Will 01/17/2022 Dwayne ([place] Sadie ([place]) Wanda Legal Guardianship 09-19-2011 * Full Code (Latest Code Status on File) Date Activated Date Inactivated Comments 05/17/2021 7:37 PM 05/21/2021 1:45 PM All basic and advanced life-sustaining interventions are performed as appropriate Question Answer Comments Code status determined by: Discussion with donavon nt/ legal decision maker * Full Code Date Activated Date Inactivated Comments 05/15/2021 7:37 PM 05/17/2021 7:37 PM All basic and advanced life-sustaining interventions are performed as appropriate Question Answer Comments Code status determined by: Discussion with donavon nt/ legal decision maker Care Teams Tow Motor Driver Relationship Specialty Start Date End Date Krystal Davidson MD PCP - General Family Medicine 05/15/21
--- OUTSIDE RECORDS SUMMARY | 2024-01-18 22:25 | XMS_ITS | Continuity of Care Document ---
Author Organization [facility] Address [address] [address] [place] [address] Phone Care Team Providers Care Affirmative Action Officer Name Role Phone Kanu Mcdowell MD Unavailable Unavailable Allergies, Adverse Reactions, Alerts Substance Reaction Status Criticality latex Rash Active No Information Sulfa (Sulfonamide Antibiotics) Rash Active No Information Medications Medication Instructions Dosage Effective Dates (start - stop) Status Comments Adderall 15 mg tablet take 1 tablet by oral route every day in the morning - Active Adderall 10 mg tablet take 1 tablet by oral route every day in the morning - Active sertraline 100 mg tablet take 2 tablets by oral route every day in the morning - Active gabapentin 100 mg capsule take 2 capsules by oral route every day in the morning - Active Seroquel 25 mg tablet take 2 tablet by oral route every day in the morning - Active Vitamin D3 25 mcg (1,000 unit) tablet take 1 tablet by oral route daily in the morning - Active gabapentin 100 mg capsule take 2 capsule by oral route every day in the afternoon - Active Seroquel 25 mg tablet take 2 tablet by oral route every day in the afternoon - Active gabapentin 400 mg capsule take 1 capsule by oral route every day at nighttime - Active gabapentin 100 mg capsule take 1 capsule by oral route every day at nighttime - Active Seroquel 100 mg tablet take 1 tablet by oral route every day at nighttime - Active trazodone 100 mg tablet take 1 tablet by oral route every day at nighttime - Active MIRALAX (unknown strength) (34g) take by oral route once a day Not Available - Active senna 8.6 mg tablet (8.6mg - 17.2 mg) take 2 tablets by oral route every day - Active Procedures Procedure Date Offic/outpt E&m Estab Mod-hi 2 23 Sigmoidoscopy Flex; W/decomp V 21 Moderate Sedation, Initial 15 minutes Oc Init Hosp-da E&m Mod Severity 1 Advance Directives Directive Yes / No Effective Date File Name No Information Encounters Encounter Description Practice Location Reason(s) For Visit Diagnoses Date Provider Providers Copied on Encounter [facility], [address] [address], [place], [id number], [place] tel:[phone] [facility] No Information 3 Jeremias Bobby. [address] [facility], [place] [address], [place], [place], [id number] , [place]. tel:[phone] Offic/outpt E&m Estab Mod-hi [address] [facility] [place], [address] [address], [place], [id number], [place] tel:[phone] [facility] GI Symptoms or Concerns (chief complaint) ObstipationAngelman syndrome Oct- 3 Jeremias Bobby. [address] [facility], [facility] [address], [facility] [place], [id number] , [place]. tel:[phone] Referring Provider: Irlanda Paris DO, [address] [place], [address]. tel:[phone] [facility], [address] [address], [place], [id number], [place] tel:[phone] [facility] No Information 3 Kwaku Dupree. [address] [facility] [address], [place], [place], [id number] , [place]. tel:[phone] Init Hosp-da E&m Mod Severity [facility], [address] [address], [place], [place], [id number], [place] tel:[phone] [facility] No Information Inocente Abdalla. [address] [facility] [address], [place], [place], [id number] , [place]. tel:[phone] Referring Provider: Gregg Maria MD, [facility] [place], [address]. tel:[phone] Family History Family Member Type Diagnosis Age At Onset Mother Problem (finding) Colon polyps Immunizations Vaccine Date Status Comments Afluria Qd administered Note: [facility] bi-directional interface ; Source: Other Registry SARS-COV-2 (COVID-19) vaccin e, mRNA, spike protein, LNP, bivalent booster, preservative free, 50 mcg/0.5 mL or 25 mcg/0.25 mL dose administered Note: [facility] bi-direct ional interface ; Source: Other Registry SARS-COV-2 (COVID-19) vaccin e, mRNA, spike protein, LNP, preservative free, 100 mcg/0.5mL dose or 50 mcg/0.25mL dose administered Note: [facility] bi -directional interface ; Source: Other Registry SARS-COV-2 (COVID-19) vaccin e, mRNA, spike protein, LNP, preservative free, 100 mcg/0.5mL dose or 50 mcg/0.25mL dose administered Note: [facility] bi -directional interface ; Source: Other Registry SARS-COV-2 (COVID-19) vaccin e, mRNA, spike protein, LNP, preservative free, 100 mcg/0.5mL dose or 50 mcg/0.25mL dose administered Note: [facility] bi -directional interface ; Source: Other Registry Afluria Qd administered Note: [facility] bi-directional interface ; Source: Other Registry Afluria Qd administered Note: [facility] bi-directional interface ; Source: Other Registry Influenza administered Note: [facility] bi-d irectional interface ; Source: Other Registry Afluria Qd administered Note: [facility] bi-directional interface ; Source: Other Registry Afluria Qd administered Note: [facility] bi-directional interface ; Source: Other Registry Afluria Qd administered Note: [facility] bi-directional interface ; Source: Other Registry Influenza, seasonal, injecta ble, preservative free administered Note: [facility] bi-direct ional interface ; Source: Other Registry tetanus toxoid, reduced diphtheria toxoid, and acellular pertussis vaccine, adsorbed administered Note: [facility] b i-directional interface ; Source: Other Registry Influenza, seasonal, injecta ble, preservative free administered Note: [facility] bi-direct ional interface ; Source: Other Registry Influenza, seasonal, injectable administe red Note: [facility] bi- directional interface ; Source: Other Registry Influenza, seasonal, injectable administe red Note: [facility] bi- directional interface ; Source: Other Registry Influenza, seasonal, injectable administe red Note: [facility] bi- directional interface ; Source: Other Registry Influenza, seasonal, injectable administe red Note: [facility] bi- directional interface ; Source: Other Registry Influenza, seasonal, injectable administe red Note: [facility] bi- directional interface ; Source: Other Registry Influenza, seasonal, injectable administe red Note: [facility] bi- directional interface ; Source: Other Registry Influenza, seasonal, injectable administe red Note: [facility] bi- directional interface ; Source: Other Registry measles, mumps and rubella v irus vaccine administered Note: [facility] bi-direct ional interface ; Source: Other Registry measles, mumps and rubella v irus vaccine administered Note: [facility] bi-direct ional interface ; Source: Other Registry Payers Payer name Insurance type Covered republican ID Imelda umanzor(s) [facility] [employer] [place] [id number] [place] CI [id number] Social History Type Description Quantity Date Captured Comments Sex Male Smoking Status No Information Chief Complaint And Reason For Visit No Information Reason For Referral Reason For Referral No Information History Of Present Illness Encounter Date Complaint History Of Prese nt Illness GI Symptoms or Concerns Adithya is a 32-year-old male with history of Angelman syndrome, obstipation, history of sigmoid volvulus requiring sigmoidectomy in 2020 who is here to discuss constipation symptom and accompanied by his mother. Adithya is nonverbal h istory provided by his mother.He recently had a brief hospitalization due to obstipation, suspected [place] syndrome but did not need any surgical intervention or endoscopic procedure. It was managed with enemas and suppositories with good response clinically and radiographically. CT scan done on this admission showed significantly dilated colon raising possibility of toxic in the colon but a follow-up KUB once he moved his bowels showed complete resolution of these findings.In 2020, he had a sigmoid volvulus requiring sigmoidoscopic decompression followed by Intra-Op colonoscopy that was unremarkable for any large lesions but expected findings of left colon redundancy and sigmoid dilatation. Sigmoidectomy was performed at that time.Currently he is taking 17 g of MiraLAX and a variable regimen of Senokot with occasional Dulcolax and enemas. No bleeding per rectum. Of note rolando celeste has family history of polyposis in his aunts but not in his mother. She has tested negative on gene testing. Functional Status Date Functional Assessmen t No Information Instructions Date Instruction Additional Infor mation No Information Assessments Type Assessment Date No Information Patient Care Teams Name Effective Dates (start - stop) Status Members No Information
== END 2024-01-19 00:44 | disposition home or self-care (01) ==
PROVIDERS: Emergency Provider Emergency Medicine Emergency Medical Services; PCP Student in an Organized Health Care Education/Training Program
DX: K59.81 Ogilvie syndrome (principal); K59.01 Slow transit constipation
CPT/HCPCS: 74176; 96372; 99284

== ENCOUNTER 2024-05-25 11:19 | Emergency (ER) | payer OTHER, MEDICAID, SELFPAY ==
[2024-05-25 11:30] VITALS: BP 142/74; PULSE 80; RESP 16; TEMP 36.8; BMI 25.2
--- NOTE | 2024-05-25 11:59 | CRLHL7_ITS ---
For Patients: As a result of the 21st Century Cures Act, medical imaging exams and procedure reports are released immediately into your electronic medical record. You may view this report before your referring provider. If you have questions, please contact your health care provider. INDICATION: Pain, not otherwise described. Abdominal distention. Diarrhea. History of Angelman syndrome. History of Lauren`s syndrome. COMPARISON: 01/18/2024 TECHNIQUE: CT of the abdomen and pelvis without intravenous contrast. Please note that all CT scans at this facility use dose modulation, iterative reconstruction, and/or weight-based dosing when appropriate to reduce radiation dose to as low as reasonably achievable. FINDINGS: The study is performed without intravenous contrast. This limits the sensitivity of the exam for the detection bowel pathology, focal lesions of the abdominopelvic viscera and vascular pathology including significant vascular stenosis, occlusion and dissection. ABDOMEN Liver: Normal contour and attenuation. No significant focal lesion. No intrahepatic biliary ductal dilatation. Gallbladder: Normal size. No pericholecystic inflammatory changes. Normal common duct caliber. Pancreas: Normal contour and attenuation. No peripancreatic inflammatory changes. No significant focal lesion. Normal main duct caliber. Spleen: Not enlarged. No significant focal lesion. Adrenal Glands: Symmetrical adrenal glands. No significant focal lesion. Kidneys: Normal bilateral renal attenuation. No significant focal lesion. No nephrolith. No dilatation of the intrarenal collecting systems. No ureteral stone. Nondilated ureters. Gastrointestinal tract: There is severe long segmental dilatation of the colon with a transition point somewhere in the left colon, difficult to identify in part due to a paucity of abdominal fat. The caliber of the descending colon is clearly decreased compared to the dilated proximal colon which is inconsistent with Lauren`s syndrome. No mechanically obstructing lesion is identified. An anastomotic suture line is noted at the level of the sigmoid colon, new in the interval since the prior examination of 01/18/2024. No evidence of pneumatosis intestinalis, portal venous gas or pneumoperitoneum. The small bowel is not dilated. Unseen appendix without signs of acute appendicitis. Vascular: Normal outer wall to outer wall abdominal aortic caliber. Patency and luminal caliber of the abdominopelvic arterial and venous vasculature cannot be assessed on this noncontrast study. Peritoneal Cavity/Retroperitoneum: No ascites. No adenopathy. PELVIS No bladder lesion is identified. No significant incidental findings related to the prostate or seminal vesicles. No significant ascites. No adenopathy. SKELETON AND BODY WALL No acute or significant incidental findings. LOWER THORAX Partially included lower thoracic wall, lungs, pleural spaces and mediastinum are otherwise without significant incidental findings. IMPRESSION: There is severe long segmental dilatation of the colon with a transition point somewhere in the left colon, difficult to identify in part due to a paucity of abdominal fat. The caliber of the descending colon is clearly decreased compared to the dilated proximal colon which is inconsistent with Monroe`s syndrome (pseudo-obstruction). No obstructing lesion is identified. An anastomotic suture line is noted at the level of the sigmoid colon, new in the interval since the prior examination of 01/18/2024. No evidence of pneumatosis intestinalis, portal venous gas or pneumoperitoneum or other findings suspicious for bowel ischemia (e.g. wall thickening or intramural hematoma). The small bowel is not dilated. Surgical consultation is recommended The study is performed without intravenous contrast. This limits the sensitivity of the exam for the detection bowel pathology, focal lesions of the abdominopelvic viscera and vascular pathology including significant vascular stenosis, occlusion and dissection. Please note that all CT scans at this facility use dose modulation, iterative reconstruction, and/or weight-based dosing when appropriate to reduce radiation dose to as low as reasonably achievable. Dictated by Diallo Clifton MD @ 05/25/2024 1:53:29 PM (Electronically Signed)
--- NOTE | 2024-05-25 12:01 | ED.GENADULT ---
HPI - General Adult General Chief complaint: Abdominal Pain Stated complaint: Stomach bloating, gurgling Time Seen by Provider: 05/25/24 11:30 History of Present Illness HPI narrative: This 33-year-old male comes in with his mother. He is nonverbal with a history of Angelman syndrome and [place] syndrome. He has slow transit constipation symptoms typically. His mother states that he has been taking lactulose and MiraLax and a gas reduce her medication. She brings him in because he seems to be uncomfortable but is unable to express this. She also noted that he has rather loud bowel sounds that are sometimes hurt even into the next room. She states that he has been having some diarrhea. The patient arrives here with normal vital signs. Related Data Home Medications ?Medication ?Instructions ?Recorded ?Confirmed dextroamphetamine-amphetamine 10 10 mg PO DAILY 09/12/22 01/18/24 mg tablet (Adderall) dextroamphetamine-amphetamine 15 15 mg PO DAILY 09/12/22 01/18/24 mg tablet gabapentin 100 mg capsule 100 - 200 mg PO TID 09/12/22 01/18/24 gabapentin 400 mg capsule 400 mg PO HS 09/12/22 01/18/24 polyethylene glycol 3350 17 17 g PO DAILY PRN 09/12/22 01/18/24 gram/dose oral powder (Miralax) quetiapine 100 mg tablet 100 mg PO HS 09/12/22 01/18/24 quetiapine 25 mg tablet 50 mg PO BID@08,15 09/12/22 01/18/24 sertraline 100 mg tablet 200 mg PO DAILY 09/12/22 01/18/24 trazodone 100 mg tablet 100 mg PO HS 09/12/22 01/18/24 olanzapine 2.5 mg tablet 2.5 mg PO QPM 01/18/24 01/18/24 Previous Rx's ?Medication ?Instructions ?Recorded bisacodyl 10 mg rectal suppository 10 mg VT DAILY PRN constipation 09/14/22 #12 ea potassium chloride 10 mEq 10 meq PO DAILY #30 caps 09/14/22 capsule,extended release polymyxin B sulfate 10,000 1 drp ophthalmic (eye) Q3H 7 days 05/25/24 unit-trimethoprim 1 mg/mL eye drops #10 mL Allergies Allergy/AdvReac Type Severity Reaction Status Date / Time latex Allergy Intermediate Verified 01/18/24 21:53 Sulfa (Sulfonamide Allergy Intermediate Verified 01/18/24 21:53 Antibiotics) Review of Systems Narrative: Unable to obtain as he is nonverbal. [facility] Medical History (Updated 05/25/24 @ 16:23 by Otto Barreto MD) Elevated AST (SGOT) ?R74.01 - Elevation of levels of liver transaminase levels (ICD-10) Slow transit constipation ?K59.01 - Slow transit constipation (ICD-10) Sleep disturbance ?G47.9 - Sleep disorder, unspecified (ICD-10) Anxiety ?F41.9 - Anxiety disorder, unspecified (ICD-10) History of seizure ?Z87.898 - Personal history of other specified conditions (ICD-10) Constipation ?K59.00 - Constipation, unspecified (ICD-10) Angelman's syndrome ?Q93.51 - Angelman syndrome (ICD-10) Surgical History (Updated 09/12/22 @ 21:24 by Karen Delgado MD) H/O umbilical hernia repair ?Z98.890 - Other specified postprocedural states (ICD-10) ?Z87.19 - Personal history of other diseases of the digestive system (ICD-10) [place] teeth extracted ?K08.409 - Partial loss of teeth, unspecified cause, unspecified class (ICD-10) S/P tonsillectomy and adenoidectomy ?Z90.89 - Acquired absence of other organs (ICD-10) History of colon resection (~04/2021) ?Z90.49 - Acquired absence of other specified parts of digestive tract (ICD-10) Family History (Updated 09/12/22 @ 22:57 by Karen Delgado MD) Maternal Grandmother Breast cancer Lung cancer Maternal Grandfather Diabetes Heart disease Paternal Grandfather Diabetes Heart disease Neuropathy Social History (Updated 09/12/22 @ 21:58 by Karen Delgado MD) Narrative: Lives at home with his parents and has a [employer] 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 Smoking Status: Never smoker Do you use any of these nicotine containing products: None Second hand tobacco smoke exposure: No How often do you have a drink containing alcohol: never How often do you have six or more drinks on one occasion: Never AUDIT-C Alcohol total score: 0 Non-prescribed substance use: denies use Caffeine: No service: No Exam Narrative: Exam Narrative: Constitutional: Well-developed, well-nourished, no acute distress. HEENT: Normocephalic, atraumatic. Neck: Normal range of motion. Nontender. Supple. Heart: Regular. No murmurs. Normal rate. Intact distal pulses. Lungs: Clear to auscultation. No chest discomfort. No wheezes, rhonchi, or rales. Abdomen: Normal bowel sounds. Distended abdomen. He appears to be uncomfortable when examining his abdomen. Genitalia: Deferred. Back: No midline tenderness. Normal range of motion. Extremities: Normal range of motion. No injury. Skin: Intact. No rash. Warm. No erythema or pallor. Neurologic: No altered sensation. No weakness. Alert and oriented. Psychiatric: No suicidality. No anxiety or depression. No insomnia. Nursing notes and vitals signs are reviewed. Const: Vital Signs, click to edit/add: Vital Signs - 24 hr 05/25/24 11:30 05/25/24 13:30 Temperature 98.3 F Pulse Rate [Right Radial] 80 72 Respiratory Rate 16 18 Blood Pressure [Ri ght Upper Arm] 142/74 H 124/78 Oxygen Delivery Me thod Room Air Room Air Course Vital Signs Vital signs: Initial Vital Signs Temperature 98.3 F 05/25/24 11:30 Temperature Source Temporal Artery Scan 05/25/24 11:30 Pulse Rate 80 05/25/24 11:30 Pulse Rhythm Regular 05/25/24 11:30 Respiratory Rate 16 05/25/24 11:30 Blood Pressure 142/74 H 05/25/24 11:30 Blood Pressure Mean 96 05/25/24 11:30 Oxygen Delivery Method Room Air 05/25/24 11:30 Vital Signs Temperature 98.3 F 05/25/24 11:30 Pulse Rate 80 05/25/24 11:30 Respiratory Rate 16 05/25/24 11:30 Blood Pressure 142/74 H 05/25/24 11:30 Oxygen Delivery Method Room Air 05/25/24 11:30 Temperature 98.3 F 05/25/24 11:30 Pulse Rate 72 05/25/24 13:30 Respiratory Rate 18 05/25/24 13:30 Blood Pressure 124/78 05/25/24 13:30 Oxygen Delivery Method Room Air 05/25/24 13:30 Medications Administered Medications: Discontinued Medications Generic Name Dose Route Start Last Admin Trade Name Saumya PRN Reason Stop Dose Admin Ketorolac Tromethamine 10 mg 05/25/24 11:59 05/25/24 12:05 Ketorolac 10 Mg Tablet PO 05/25/24 12:00 10 mg ONCE ONE Administration Lorazepam 1 mg 05/25/24 14:19 05/25/24 14:26 Lorazepam 1 Mg Tablet PO 05/25/24 14:20 1 mg ONCE ONE Administration Medical Decision Making MDM Narrative Medical decision making narrative: This 33-year-old male is nonverbal but appears to be a uncomfortable at times and has distention of his abdomen. He does have history of Lauren syndrome. He does arrive with normal vital signs. A CT scan of the abdomen is obtained without contrast as the patient would not likely allow an IV to reside in his extremity. CT imaging does show significant distention of his bowels due to gas but this is involving the proximal colon and not the distal colon and is therefore not typical of Lauren's syndrome. I did consult with the surgeon on-call, Dr. Doe, who recommended getting labs. These all returned with normal results as are his vital signs. The patient did receive an oral dose of Toradol and later an oral dose of Ativan. He seems to be feeling okay and his mother thinks that he is okay to return home. I did advise her regarding signs and symptoms that would indicate a need for return and re-evaluation. He is currently taking MiraLax and Gas-X. The patient's mother states that she could give him a suppository to try to get things moving along. The patient did receive a prescription for Polytrim as he has been having some discharge from his right eye. Lab Data Labs: Lab Results 05/25/24 Range/Units 15:18 WBC 3.99 L (4.50-11.00) K/uL RBC 4.50 (4.30-5.90) m/uL Hgb 13.9 (13.5-17.5) gm/dL Hct 43.0 (37.0-53.0) % MCV 96 (80-100) fL MCH 31 (26-34) pg MCHC 32 (32-36) gm/dL RDW Coeff of Pamela 13.8 (11.5-15.5) % Plt Count 174 (140-440) K/uL Neut % (Auto) 63.1 (42.0-72.0) % Lymph % (Auto) 27.6 (20-44) % [place] % (Auto) 7.5 (0.0-11.0) % Eos % (Auto) 0.8 (0.0-7.0) % Baso % (Auto) 1.0 (0.0-3.0) % Neut # (Auto) 2.50 (1.7-7.0) K/uL Lymph # (Auto) 1.10 (0.90-2.90) K/uL [place] # (Auto) 0.30 (0.00-0.90) K/UL Eos # (Auto) 0.00 (0.00-0.50) K/uL Baso # (Auto) 0.00 (0.00-0.30) K/uL Abs Immat Gran (auto) 0.00 (0.00-0.30) K/uL Imm/Tot Granulo (auto) 0.0 % Sodium 137 (135-149) mmol/L Potassium 3.7 (3.6-5.1) mmol/L Chloride 101 (96-114) mmol/L Carbon Dioxide 28 (20-32) mmol/L Anion Gap 8 (7-15) mEq/L BUN 13 (5-24) mg/dL Creatinine 0.7 (0.5-1.5) mg/dL Estimated Creat Clear 163.21 Estimated GFR 124 ml/min Glucose 101 (60-115) mg/dL Lactate < 0.4 L (0.5-1.9) mmol/L Calcium 9.1 (8.4-10.6) mg/dL Total Bilirubin 0.4 (0.1-1.5) mg/dL Direct Bilirubin 0.3 (0.0-0.5) mg/dL AST 76 H (12-35) U/L ALT 85 H (4-50) U/L Alkaline Phosphatase 72 (40-150) U/L Total Protein 7.1 (6.0-8.3) g/dL Albumin 4.6 (3.3-5.0) g/dL Lipase 80 (23-300) U/L Imaging Data CT scan - abdomen: Radiologist's impression: There is severe long segmental dilatation of the colon with a transition point somewhere in the left colon, difficult to identify in part due to a paucity of abdominal fat. The caliber of the descending colon is clearly decreased compared to the dilated proximal colon which is inconsistent with Lauren`s syndrome (pseudo-obstruction). No obstructing lesion is identified. An anastomotic suture line is noted at the level of the sigmoid colon, new in the interval since the prior examination of 01/18/2024. No evidence of pneumatosis intestinalis, portal venous gas or pneumoperitoneum or other findings suspicious for bowel ischemia (e.g. wall thickening or intramural hematoma). The small bowel is not dilated. Surgical consultation is recommended The study is performed without intravenous contrast. This limits the sensitivity of the exam for the detection bowel pathology, focal lesions of the abdominopelvic viscera and vascular pathology including significant vascular stenosis, occlusion and dissection. Discharge Plan Discharge Clinical Impression: Slow transit constipation, Abdominal pain Additional Instructions: Continue current plans. Use [id number] medicines for managing bowel function as needed and directed. Follow up with MD or return if worsening symptoms occur. Prescriptions: New polymyxin B sulf-trimethoprim 10,000 unit- 1 mg/mL drops 1 drp ophthalmic (eye) Q3H 7 Days Qty: 10 0RF Rx Instructions: while awake; do not exceed 6 doses in 24 hours No Action olanzapine 2.5 mg tablet 2.5 mg PO QPM quetiapine 25 mg tablet 50 mg PO BID@08,15 Patient Comments: TAKE TWO TABLETS (50MG) BY MOUTH TWICE A DAY (morning and 3pm) gabapentin 400 mg capsule 400 mg PO HS Patient Comments: TAKE ONE (1) CAPSULE BY MOUTH AT BEDTIME TAKE WITH 100MG CAPSULE TO = 500MG AT BEDTIME sertraline 100 mg tablet 200 mg PO DAILY Patient Comments: TAKE TWO TABLETS BY MOUTH DAILY quetiapine 100 mg tablet 100 mg PO HS Patient Comments: TAKE ONE (1) TABLET BY MOUTH AT BEDTIME trazodone 100 mg tablet 100 mg PO HS Patient Comments: TAKE ONE TABLET BY MOUTH AT BEDTIME gabapentin 100 mg capsule 100 - 200 mg PO TID Patient Comments: TAKE TWO CAPSULES BY MOUTH TWICE A DAY (morning and 3pm) AND ONE CAPSULE AT BEDTIME dextroamphetamine-amphetamine [Adderall] 10 mg tablet 10 mg PO DAILY dextroamphetamine-amphetamine 15 mg tablet 15 mg PO DAILY Patient Comments: TAKE ONE TABLET BY MOUTH EVERY MORNING. (ALONG WITH 10MG FOR TOTAL DOSE OF 25MG DAILY) polyethylene glycol 3350 [Miralax] 17 gram/dose powder 17 g PO DAILY PRN potassium chloride 10 mEq capsule, extended release 10 meq PO DAILY Qty: 30 0RF bisacodyl 10 mg suppository 10 mg VT DAILY PRN (Reason: constipation) Qty: 12 0RF Follow Up/Referrals: PRETTY CORDERO DO [Primary Care Provider] -
[2024-05-25] MEDS: KETOROLAC 10 MG TABLET PO (12:05)
[2024-05-25 13:30] VITALS: BP 124/78; PULSE 72; RESP 18
[2024-05-25] MEDS: LORazepam 1 MG TABLET PO (14:26)
[2024-05-25 15:24] LABS: Lactate* < 0.4 mmol/L (0.5-1.9)
[2024-05-25 15:28] LABS: Eosinophils Percent Auto 0.8 % (0.0-7.0); Hemoglobin* 13.9 gm/dL (13.5-17.5); Lymphocytes Percent Auto 27.6 % (20-44); Mean Corpuscular HGB Conc 32 gm/dL (32-36); Mean Corpuscular Hemoglobin 31 pg (26-34); Mean Corpuscular Volume 96 fL (80-100); Monocytes Percent Auto 7.5 % (0.0-11.0); Neutrophils Percent Auto 63.1 % (42.0-72.0); Platelet Count* 174 K/uL (140-440); RDW Coefficient of Variation % 13.8 % (11.5-15.5); White Blood Count* 3.99 K/uL (4.50-11.00)
[2024-05-25 15:30] LABS: Slide Review Reflex No
[2024-05-25 15:42] LABS: Chloride* 101 mmol/L (96-114)
[2024-05-25 15:43] LABS: Albumin* 4.6 g/dL (3.3-5.0); Potassium* 3.7 mmol/L (3.6-5.1); Sodium* 137 mmol/L (135-149)
[2024-05-25 15:45] LABS: Creatinine* 0.7 mg/dL (0.5-1.5); Est. Creatinine Clearance* 163.21; Estimated Glomerular Filt Rate 124 ml/min
[2024-05-25 15:46] LABS: Alanine Aminotransferase* 85 U/L (4-50); Alkaline Phosphatase* 72 U/L (40-150); Anion Gap 8 mEq/L (7-15); Aspartate Amino Transferase* 76 U/L (12-35); Bilirubin Direct* 0.3 mg/dL (0.0-0.5); Bilirubin Total* 0.4 mg/dL (0.1-1.5); Blood Urea Nitrogen* 13 mg/dL (5-24); Calcium* 9.1 mg/dL (8.4-10.6); Carbon Dioxide* 28 mmol/L (20-32); Glucose* 101 mg/dL (60-115); Lipase* 80 U/L (23-300); Total Protein* 7.1 g/dL (6.0-8.3)
== END 2024-05-25 16:41 | disposition home or self-care (01) ==
LOC: ED 12:25
PROVIDERS: Emergency Provider Emergency Medicine Emergency Medical Services; PCP Student in an Organized Health Care Education/Training Program
DX: K59.01 Slow transit constipation (principal); R10.9 Unspecified abdominal pain
CPT/HCPCS: 36415; 74176; 80048; 80076; 83605; 83690; 85025; 99284; A9270